=== PATIENT | male | born 1950 | race Caucasian/White ===

== ENCOUNTER → 2023-03-11 | Outpatient (CLI) | payer MEDICARE, OTHER, SELFPAY ==
--- NOTE | 2023-03-11 10:17 | RAD_ITS ---
INDICATION: CHRONIC HIP PAIN EXAMINATION/TECHNIQUE: X-RAY - XR Hip Unilateral with Pelvis when performed; 2-3 Views: AP view pelvis with AP and lateral views right hip COMPARISON: No relevant prior comparison study available FINDINGS: PELVIC BONES: No displaced fracture or suspicious osseous lesion demonstrated. Note that overlapping bowel shadows may however obscure fine detail. Sacroiliac joints are unremarkable. No widening of the pubic symphysis. Degenerative changes along imaged spine. HIPS: Severe bilateral hip degenerative joint space narrowing with [id number] articulation, subchondral eburnation and marginal osteophytosis. There is mild flattening of articular surfaces bilateral femoral heads. SOFT TISSUES: No soft tissue swelling or gas. 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 Electronically Signed: Oscar Reed MD at 0:21 EDT ,
--- NOTE | 2023-03-11 10:17 | RAD_ITS ---
INDICATION: PAIN IN BOTH KNEES EXAMINATION/TECHNIQUE: X-RAY - RIGHT XR Knee 1 or 2 Views 2 VIEWS COMPARISON: No relevant prior comparison study available FINDINGS: SOFT TISSUES: No soft tissue swelling or gas. No radiopaque foreign body. BONES/JOINTS: No acute fracture or subluxation.. Normal alignment. Preservation of the joint space.. No sclerotic or destructive changes observed. RAD/Knee 1 or 2 Views IMPRESSION: Unremarkable examination. Electronically Signed: Deepak Clayton MD at 11:27 EDT ,
--- NOTE | 2023-03-11 10:24 | RAD_ITS ---
INDICATION: PAIN EXAMINATION/TECHNIQUE: X-RAY - LEFT XR Knee 1 or 2 Views 2 VIEWS COMPARISON: No relevant prior comparison study available FINDINGS: SOFT TISSUES: No soft tissue swelling or gas. No radiopaque foreign body. BONES/JOINTS: No acute fracture or subluxation.. Mild chondrocalcinosis of the lateral joint compartment. Preservation of the joint space.. No sclerotic or destructive changes observed. RAD/Knee 1 or 2 Views IMPRESSION: Mild chondrocalcinosis of the lateral joint compartment. Electronically Signed: Deepak Clayton MD at 11:28 EDT ,
== END | disposition home or self-care (01) ==
PROVIDERS: PCP Family Medicine; Referring Provider Family Medicine; Visit Provider Family Medicine
DX: M25.551 Pain in right hip (principal)
CPT/HCPCS: 73502; 73560

== ENCOUNTER → 2023-06-06 | Outpatient (CLI) | payer MEDICARE, OTHER, SELFPAY ==
--- NOTE | 2023-06-06 09:20 | EKG12_ITS ---
Test Reason : PRE OP Blood Pressure : / mmHG Vent. Rate : 058 BPM Atrial Rate : 058 BPM P-R Int : 200 ms QRS Dur : 084 ms QT Int : 404 ms P-R-T Axes : 026 -14 004 degrees QTc Int : 396 ms Sinus bradycardia Inferior infarct , age undetermined Abnormal ECG Confirmed by DALLAS BENTLEY, MARITO ([id number]), editor & co founder JOHN MCMILLAN ([id number]) on 06/06/2023 2:33:10 PM Referred By: Drew Hernandez Confirmed By:MARITO HAYNES MD
--- NOTE | 2023-06-06 09:35 | RAD_ITS ---
STUDY: X-RAY CHEST REASON FOR EXAM: Male, 72 years old. PRE OP TECHNIQUE: PA and lateral views of the chest. COMPARISON: None. FINDINGS: The lungs are clear and expanded. There is no demonstrated pleural abnormality. Normal size heart. Normal mediastinum and [place]. Normal visualized pulmonary arteries. Normal visualized aortic arch and descending thoracic aorta. Normal visualized thoracic spine. Normal visualized ribs, clavicles, and shoulders. There is no demonstrated abnormality of the visualized soft tissue structures of the upper abdomen. RAD/Chest PA and Lateral IMPRESSION: Normal x-ray examination of the chest. Electronically Signed: Sd Trinidad MD at 22:20 [facility] ,
[2023-06-06 10:26] LABS: Absolute Lymphocyte Count 2.08 X10^3/uL (0.83-4.51); Absolute Neutrophil Count 8.3 X10^3/uL (2.0-7.7); Basophil# 0.06 X10^3/uL; Basophil% 0.5 % (0-1); Eosinophil# 0.13 X10^3/uL; Eosinophils% 1.1 % (0-5); Hematocrit 47.4 % (40-54); Hemoglobin 15.1 g/dL (13.0-16.5); Lymphocyte # 2.08 X10^3/ul (0.83-4.51); Lymphocyte % 18.3 % (19-41); Mean Corp Hgb Conc 31.9 g/dL (32-36); Mean Corpuscular Hgb 29.6 pg (27.0-32.0); Mean Corpuscular Volume 92.9 fL (80-94); Mean Platelet Vol. 9.3 fl (6.2-12.0); Monocyte# 0.68 X10^3/uL; NRBC Flagged by Analyzer 0 % (0-5); Neutrophil # 8.32 X10^3/uL (2.7-7.7); Neutrophil % 73.5 % (47-70); Platelet Count 289 K/mm3 (150-450); RBC Distribution Width CV 12.8 % (11.6-14.6); RBC Distribution Width SD 43.8 fl (35.1-43.9); White Blood Count 11.3 K/mm3 (4.4-11.0)
[2023-06-06 10:57] LABS: Anion Gap 3 (5-15); BUN 11 mg/dL (7-18); BUN/Creat Ratio 14.5 RATIO (10-20); Calcium,Total 8.8 mg/dL (8.5-10.1); Chloride 108 mmol/L (98-107); Creatinine, Serum 0.76 mg/dL (0.70-1.30); EST Glomerular Filtration Rate 107 mL/min (>60); Est Glom Filt Rate - Afr Amer 130 mL/min (>60); Glucose 95 mg/dL (74-106); Sodium Level 140 mmol/L (136-145)
== END | disposition home or self-care (01) ==
LOC: PSN 09:19
PROVIDERS: PCP Physician Assistant; Referring Provider Orthopaedic Surgery; Visit Provider Orthopaedic Surgery
DX: Z01.818 Encounter for other preprocedural examination (principal); M16.11 Unilateral primary osteoarthritis, right hip
CPT/HCPCS: 36415; 71046; 80048; 85025; 93005

== ENCOUNTER → 2023-07-01 | Outpatient (CLI) | payer MEDICARE, OTHER, SELFPAY ==
--- NOTE | 2023-07-01 | HIP_PTH ---
PATHOLOGY RESULTS PATIENT: SUKHDEV HERNANDEZ LOC: [facility] U#:[id number] AGE/SX: 72/M ROOM: RE07/01/[address]: Dr. Drew Hernandez MD : 1950 BED: DIS: 07/01/2023 SPEC #: [id number] RECD: 07/04/23 07:35 STATUS: JEFRY JULIA #: [id number] GEOVANNA: 07/01/23 00:[address]: Drew Hernandez DEPT: SURGICAL PATHOLOGY RECD BY: Jimena Zaldivar ENTERED: 07/04/23 07:35 SP TYPE: TOTAL HIP OTHR DR: MAY Tissues: Hip, NOS Procedures: Decalcification bone/plaque Surgery Specimen Level IV HEADER OPERATION: Right total hip replacement PRE-OP DIAGNOSIS: Grade 4 primary osteoarthritis right hip TISSUE SUBMITTED: Right hip MICROSCOPIC DIAGNOSIS Bone and tissue of right hip, total hip resection: Severe degenerative joint disease. Mild synovial hyperplasia. AM:yanique 07/08/2023 MICROSCOPIC DESCRIPTION Slides are reviewed. GROSS DESCRIPTION Received is one container labeled with the patient's name and designated bone and soft tissue right hip. The specimen consists of a aguilera femoral head with portion of femoral neck. The femoral head measures 5.5 x 6.0 x 4.5 cm and the femoral neck measures 1.0 cm in length. The articular surface displays prominent osteophyte formation, eburnation and bone erosion. Also present in the specimen container are multiple irregular fragments of bone reamings and pink-yellow soft tissue measuring in aggregate 9.0 x 9.0 x 2.5 cm. Finishing Trimmer sections are submitted in two cassettes as follows: 1 - soft tissue, 2??bone after decalcification. / SJ:yanique 07/04/2023 TC:5 [facility]: [id number], [id number]
--- OUTSIDE RECORDS SUMMARY | 2023-07-01 15:39 | XMS RPT_ITS | CCD ---
Author Name Unknown Address [address] [facility] [address] [place] [id number] Organization [facility] Care Team Providers [employer] Leader Name Role Phone Tim Hernandez Unavailable Sukhdev Ramos Unavailable Tim Rasheed Unavailable Sukhdev Ramos Unavailable Jared Parker, Dr. Sukhdev Terrazas Attending Inessa Parker, Dr. Sukhdev Terrazas Primary Care UnavailSukhdev Aguilar MD Primary Care Provider BORA RAMOS Attending Unavailable SUKHDEV PARKER Primary Care Unavailable SUKHDEV PARKER Primary Care Unavailable PASTORA SEQUEIRA Primary Care Unavailable PASTORA SEQUEIRA Consulting Unavailable ROCIO BENTLEY~[id number], ROCIO [place] Admitting Unavailable ROCIO BENTLEY~[id number], ROCIO [place] Attending Unavailable PASTORA SEQUEIRA Consulting Unavailable CORNELIUS GARZA APRN Consulting Unavailable CORNELIUS GARZA APRN Consulting Unavailable Allergies Allergy Classification Reported Allergen(s) Allergy Type Date of Onset Reaction(s) Facility (1 source) penicillin; Translations: [penicillin] [facility] Penicillins Drug allergy (disorder) [facility] Repository Medications Current Medications Medication Drug Class(es) Dates Sig (Normalized) Sig (Original) atorvastatin 10 mg oral tablet (1 source) HMG-CoA Reductase Inhibitor take 1 tablet by mouth once daily atorvastatin (Lipitor) 10 mg tablet Take 1 tablet (10 mg) by mouth once daily. 0 Active Problems Active Problems Problem Classification Problem Date Documented Da te Episodic/Chronic Disorders of lipid metabolism (5 sources) Dyslipidemia; Translations: [Hyperlipidemia, unspecified] Onset: 05-24-2023 05-24-2023 Chronic Other nervous system disorders (4 sources) Other chronic pain; Translations: [Other chronic pain] Onset: 05-24-2023 Chronic Other non-traumatic joint disorders (1 source) Hip pain; Translations: [Pain in right hip] 05-24-2023 Episodic Other non-traumatic joint disorders (5 sources) Pain in right hip; Translations: [Pain in right hip] Onset: 05-24-2023 Episodic Other non-traumatic joint disorders (5 sources) Pain in left hip; Translations: [Pain in left hip] Onset: 05-24-2023 Episodic Other screening for suspected conditions (not mental disorders or infectious disease) (5 sources) Patient encounter status; Translations: [Encounter for screening for malignant neoplasm of prostate] Onset: 05-24-2023 05-24-2023 Episodic Residual codes; unclassified (3 sources) Obstructive sleep apnea (adult) (pediatric); Translations: [OBSTRUCTIVE SLEEP APNEA] Onset: 06-02-2023 Chronic Residual codes; unclassified (3 sources) Localized edema; Translations: [Localized edema] Onset: 07-14-2022 Episodic Past or Other Problems Problem Classification Problem Date Documented Da te Episodic/Chronic Unclassified (1 source) Onset: 05-24-2023 05-24-2023 Results Test Name Value Interpretation Reference Range Facil ity Vital Signs Date Time Vital Sign Value Performing Clinician Facility 05-24-2023 13:44-0500 Body height 175.3 cm Bora Newbill PA-C Work Phone: [facility] 05-24-2023 13:44-0500 Body mass index (BMI) [Ratio] 29.74 kg/m2 Bora Newbill PA-C Work Phone: [facility] 05-24-2023 13:44-0500 Body temperature 97.81 [degF] Bora Newbill PA-C Work Phone: [facility] 05-24-2023 13:44-0500 Body weight 91.35 kg Bora Newbill PA-C Work Phone: [facility] 05-24-2023 13:44-0500 Diastolic blood pressure 53 mm[Hg] Bora Newbill PA-C Work Phone: [facility] 05-24-2023 13:44-0500 Heart rate 87 /min Bora Ramos PA-C Work Phone: [facility] 05-24-2023 13:44-0500 SaO2% (BldA) [Mass fraction] 95 % Bora ALEXANDER-C Work Phone: [facility] 05-24-2023 13:44-0500 Systolic blood pressure 122 mm[Hg] Bora ALEXANDER-Sidney Work Phone: [facility] Encounters Encounter Date Encounter Type Care Provider Facility Start: 06-02-2023 ambulatory PASTORA SEQUEIRA Faci lity:[facility] Start: 05-27-2023 End: 05-28-2023 ambulatory SUKHDEV PARKER [facility] Start: 05-24-2023 End: 05-24-2023 [facility] Start: 05-24-2023 End: 05-24-2023 Office outpatient new 30 minutes Bora Ramos PA-C Work Phone: [facility] Procedures Date Procedure Procedure Detail Performing Clinician Start: 05-27-2023 CBC panel - Blood by Automated count SUKHDEV PARKER Start: 05-27-2023 Comprehensive metabo lic 2000 panel - Serum or Plasma SUKHDEV PARKER Start: 05-27-2023 Lipid panel SUKHDEV CLIFFORD Start: 05-27-2023 PROSTATE SPECIFIC AN TIGEN, SCREEN SUKHDEV PARKER Start: 05-27-2023 TSH WITH REFLEX TO F REE T4 IF ABNORMAL SUKHDEV PARKER Plan of Treatment Date Care Activity Detail Author Start: 05-24-2024 End: 05-24-2024 Patient encounter procedure 05/24/2024 1:30 PM EST Office Visit [facility] [address] [place] [id number] Bora Ramos PA-C [address] [facility] [place] [address] [facility] Start: 05-27-2023 COVID-19 Vaccine (5 - Moderna series) COVID-19 Vaccine (5 - Moderna series) [facility] Start: 05-24-2023 End: 05-24-2024 CBC panel - Blood by Automated count CBC Lab Routine Dyslipidemia Chronic pain of both hips Expected: 05/24/2023 (Approximate), Expires: 05/24/2024 [facility] Service Area Work Phone: Payers Date Payer Category Payer [employer] [id number] 2022 [employer] LIFE [id number] 2022-Present [address] [place] [address] [id number] 2017 Unknown 2015 Medicare MEDICARE MEDICAR E PART A AND B [id number] 2015-Present [address] [place] [address] [id number] 1959 [employer] others) [id number] 1959 Medicare [id number] 1950 Unknown [id number] 1950 Unknown [id number] 1950 Unknown [id number] 1950 Unknown [id number] Social History Date Type Detail Facility Start: 05-24-2023 Tobacco smoking stat us WYIS Ex-smoker [facility] Work Phone: History of tobacco use Current smoker [facility] Work Phone: History of tobacco use Cigarette Smoker [facility] Work Phone: Start: 05-24-2023 Tobacco use and exposure Smokeless tobacco non-user [facility] Work Phone: Start: 05-24-2023 Alcohol intake Ex-drinker (finding) [facility] Work Phone: Start: 05-24-2023 History of Social function [facility] Work Phone: Start: 05-24-2023 Tobacco use panel [facility] Work Phone: Start: 05-24-2023 Alcohol Comment former drinker [facility] Work Phone: Start: 1950 Sex Assigned At Not on file [facility] Work Phone: Start: 05-14-2023 End: 05-24-2023 Exposure to SARS-CoV-2 (event) Not sure [facility] History of Present illness Narrative 05-24-2023 Bora Ramos PA-C - 05/24/2023 1:30 PM EST Note Date & Type Note Facility 05-24-2023 History of Present illness Narrative Subjective Patient ID: Sukhdev Alexandre is a 72 y.o. male who presents for [facility] (Patient transferring from Dr. Parker and offers no complaints. Mentions is scheduled for right hip replacement on 07-05-2023 in [place]./Colonoscopy done [address] Oliva, prostate and PSY done 05/2022.). HPI Patient presents to [facility]. Patient has medical history of dyslipidemia and takes atorvastatin for this. Patient also has a history of chronic hip pain and arthritis and is scheduled to have right total hip in early June. Patient has already been cleared for surgery. Shortly thereafter, the patient will have the left done as well. Patient is having this done at [place] [facility]. Patient has no acute complaints Review of Systems Constitutional: See HPI Eye: No recent visual problem. Respiratory: No shortness of breath, No cough. Cardiovascular: No chest pain. Gastrointestinal: No abdominal pain, No nausea, No vomiting. Genitourinary: No dysuria, No hematuria. Musculoskeletal: No decreased range of motion. Integumentary: No rash. Neurologic: Alert and oriented X4, No numbness, No tingling. All other systems are negative Objective BP 122/53 Pulse 87 Temp 36.6 C (97.8 F) (Temporal) Ht 1.753 m (5' 9 ) Wt 91.4 kg (201 lb 6.4 oz) SpO2 95% BMI 29.74 kg/m Physical Exam General: Alert and oriented, No acute distress. Eye: Pupils are equal, round and reactive to light, Extraocular movements are intact, Normal conjunctiva. HENT: Normocephalic, Normal hearing, Oral mucosa is moist, No pharyngeal erythema, No sinus tenderness. Neck: Supple, Non-tender, No lymphadenopathy. Respiratory: Lungs are clear to auscultation, Respirations are non-labored, Breath sounds are equal Cardiovascular: Normal rate, Regular rhythm. Gastrointestinal: Non-distended. Musculoskeletal: Normal range of motion, Normal strength, No tenderness, No swelling, No deformity, Normal gait. Integumentary: Warm, Dry, Intact, No pallor, No rash. Neurologic: Alert, Oriented, Normal sensory, Normal motor function, No focal deficits, Cranial Nerves II-XII are grossly intact Psychiatric: Cooperative, Appropriate mood & affect. Assessment/Plan Dyslipidemia/Healthcare maintenance: Screening screening labs ordered. Continue atorvastatin at current dose. Further recommendations pending results. Chronic hip pain: Continue with orthopedics as scheduled. Follow-up in 1 year or as needed unless labs dictate otherwise. Problem List Items Addressed This Visit None Visit Diagnoses Dyslipidemia - Primary Relevant Orders CBC Comprehensive Metabolic Panel Lipid Panel TSH with reflex to Free T4 if abnormal Chronic pain of both hips Relevant Orders CBC Comprehensive Metabolic Panel Lipid Panel TSH with reflex to Free T4 if abnormal Encounter for screening for malignant neoplasm of prostate Relevant Orders Prostate Specific Antigen, Screen Final diagnoses: [E78.5] Dyslipidemia [M25.551, M25.552, G89.29] Chronic pain of both hips [Z12.5] Encounter for screening for malignant neoplasm of prostate documented in this encounter [facility] Work Phone: Evaluation note Note Date & Type Note Facility documented in this encounter [facility] Work Phone: Reason for referral (narrative) Consultation (Routine) - Authorized Note Date & Type Note Facility Referral ID Status Reason Start Date Expiration Date V isits Requested Visits Authorized [id number] Authorized 05/24/2023 05/23/2024 1 1 [facility] Work Phone: Summary Purpose Family History No Family History Records FoundNo Family History Records FoundNo Family History Records FoundNo Family History Records FoundNo Family History Records Found Advance Directives No Advanced Directives Records FoundNo Advanced Directives Records FoundNo Advanced Directives Records FoundNo Advanced Directives Records FoundNo Advanced Directives Records Found Additional Source Comments (unrecognized sect ion and content) No Status Records FoundNo Status Records FoundNo Status Records FoundNo Status Records FoundNo Status Records Found INFORMATION SOURCE (unrecogn ized section and content) DATE CREATED AUTHOR AUTHOR'S ORGANIZ ATION 07/20/2022 [facility] DATE CREATED AUTHOR AUTHOR'S ORGANIZ ATION 05/27/2023 [facility] DATE CREATED AUTHOR AUTHOR'S ORGANIZ ATION 06/02/2023 [facility] DATE CREATED AUTHOR AUTHOR'S ORGANIZ ATION 06/04/2023 [facility] Reason for Visit (unrecogniz ed section and content) Care Teams (unrecognized sec tion and content) FOR RECORDS PERTAINING TO PATIENTS WHO ARE OR HAVE BEEN ENROLLED IN A CHEMICAL DEPENDENCY/SUBSTANCEABUSE PROGRAM, SOME INFORMATION MAY BE OMITTED. This clinical summary was aggregated from multiple sources. Caution should be exercised in using it in the provision of clinical care. This summary normalizes information from multiple sources, and as a consequence, information in this document may materially change the coding, format and clinical context of patient data. In addition, data may be omitted in some cases. CLINICAL DECISIONS SHOULD BE BASED ON THE PRIMARY CLINICAL RECORDS. [facility]. provides no warranty or guarantee of the accuracy or completeness of information in this document.
== END | disposition home or self-care (01) ==
LOC: LABSPEC 15:13
PROVIDERS: PCP Physician Assistant; Referring Provider Orthopaedic Surgery; Visit Provider Orthopaedic Surgery
DX: M16.11 Unilateral primary osteoarthritis, right hip (principal)
CPT/HCPCS: 88305; 88311

== ENCOUNTER → 2023-07-12 | Outpatient (CLI) | payer MEDICARE, OTHER, SELFPAY ==
--- NOTE | 2023-07-12 12:52 | VDLE_ITS ---
Reason For Study: RLE Pain RIGHT LEFT GSV is normal. CFV is compressible, spontaneous, phasic, CFV is compressible, spontaneous, phasic, competent, and demonstrates normal competent and demonstrates normal augmentation. augmentation. FV is compressible, spontaneous, phasic, competent and demonstrates normal augmentation. POP V is compressible, spontaneous, phasic, competent and demonstrates normal augmentation. T/P Trunk is compressible. PTV is compressible. RT PerV is compressible. Procedure This is a venous duplex using B-mode, color flow and spectral Doppler. Exam performed in department. The exam was diagnostic. A preliminary report was called and/or faxed to Godwin Menendez. VL/Venous Duplex US, Unilateral Interpretation Summary Deep veins of the right lower extremity are patent and compressible segmentally . There is no evidence of right lower extremity deep vein thrombosis. The right great sapheno us vein appears patent and compressible segmentally. Ordering Physician: Lynn Menendez Referring Physician: Lynn Menendez Performed By: Shan Jasmine RVT
== END | disposition home or self-care (01) ==
LOC: CVS 12:51
PROVIDERS: PCP Physician Assistant; Referring Provider Physician Assistant; Visit Provider Physician Assistant
DX: M79.661 Pain in right lower leg (principal); R21 Rash and other nonspecific skin eruption
CPT/HCPCS: 93971

== ENCOUNTER → 2023-08-24 | Outpatient (CLI) | payer MEDICARE, OTHER, SELFPAY ==
--- OUTSIDE RECORDS SUMMARY | 2023-08-24 09:07 | XMS RPT_ITS | CCD ---
Author Name Unknown Address [address] [place] [address] Organization [facility] Care Team Providers Care Data Processing Consultant Name Role Phone Tim Hernandez Unavailable Unavailable Sukhdev Blanton Unavailable Unavailable Tim Hernandez Unavailable Unavailable Sukhdev Blanton Unavailable Unavailable Elena, Dr. Sukhdev Terrazas Attending Unavailsteve Blanton, Dr. Sukhdev Terrazas Primary Care UnavailSukhdev Aguilar MD Primary Care Provider SUKHDEV BLANTON Primary Care Unavailable PASTORA SEQUEIRA Primary Care Unavailable PASTORA SEQUEIRA Consulting Unavailable ROCIO BENTLEY~[id number], ROCIO [place] Admitting Unavailable ROCIO BENTLEY~[id number], ROCIO [place] Attending Unavailable PASTORA SEQUEIRA Consulting Unavailable CORNELIUS GARZA APRN Consulting Unavailable CORNELIUS GARZA APRN Consulting Unavailable Bora Ramos PA-C Primary Care Provider BORA RAMOS Attending Unavailable SUKHDEV BLANTON Primary Care Unavailable BORA RAMOS Attending Unavailable BORA RAMOS Primary Care Unavailable Allergies Allergy Classification Reported Allergen(s) Allergy Type Date of Onset Reaction(s) Facility (1 source) penicillin; Translations: [penicillin[facility] Penicillins Drug allergy (disorder) [facility] Repository Medications Current Medications Medication Drug Class(es) Dates Sig (Normalized) Sig (Original) atorvastatin 10 mg oral tablet (3 sources) HMG-CoA Reductase Inhibitor Start: 07-18-2023 End: 07-18-2023 take 1 tablet by mouth once daily atorvastatin (Lipitor) 10 mg tablet Indications: Dyslipidemia Take 1 tablet (10 mg) by mouth once daily. 90 tablet 3 07/18/2023 Active Problems Active Problems Problem Classification Problem Date Documented Da te Episodic/Chronic Disorders of lipid metabolism (6 sources) Dyslipidemia; Translations: [Hyperlipidemia, unspecified] Onset: 05-24-2023 05-24-2023 Chronic E Codes: Adverse effects of medical drugs (3 sources) Adverse reaction to drug; Translations: [Adverse effect of unspecified drugs, medicaments and biological substances, initial encounter] Onset: 07-18-2023 07-18-2023 Episodic Other nervous system disorders (4 sources) Other [...] Problem Date Documented Da te Episodic/Chronic Unclassified (2 sources) Onset: 05-24-2023 Resolved: 07-18-2023 05-24-2023 Results Test Name Value Interpretation Reference Range Facil ity Vital Signs Date Time Vital Sign Value Performing Clinician Facility 07-18-2023 16:21-0500 Body height 175.3 cm Bora IGAWorksliseth [employer] Work Phone: [facility] 07-18-2023 16:21-0500 Body mass index (BMI) [Ratio] 30.82 kg/m2 Bora Kaazing Work Phone: [facility] 07-18-2023 16:21-0500 Body temperature 98.6 [degF] Bora Newbill PA-C Work Phone: [facility] 07-18-2023 16:21-0500 Body weight 94.67 kg Bora Newbill PA-C Work Phone: [facility] 07-18-2023 16:21-0500 Diastolic blood pressure 62 mm[Hg] Bora Newbill PA-C Work Phone: [facility] 07-18-2023 16:21-0500 Heart rate 59 /min Bora Newbill PA-C Work Phone: [facility] 07-18-2023 16:21-0500 Systolic blood pressure 141 mm[Hg] Bora Newbill PA-C Work Phone: [facility] 05-24-2023 13:44-0500 Body height 175.3 cm Bora Newbill PA-C Work Phone: [phone] [place] [address] 05-24-2023 13:44-0500 Body mass index (BMI) [Ratio] 29.74 kg/m2 Bora Newbill PA-C Work Phone: [phone] [address] 05-24-2023 13:44-0500 Body temperature 97.81 [degF] Bora Newbill PA-C Work Phone: [facility] 05-24-2023 13:44-0500 Body weight 91.35 kg Bora Newbill PA-C Work Phone: [facility] 05-24-2023 13:44-0500 Diastolic blood pressure 53 mm[Hg] Bora Newbill PA-C Work Phone: [phone] [place] [address] 05-24-2023 13:44-0500 Heart rate 87 /min Bora Newbill PA-C Work Phone: [phone] [place] [address] 05-24-2023 13:44-0500 SaO2% (BldA) [Mass fraction] 95 % Bora Ramos PA-C Work Phone: [facility] 05-24-2023 13:44-0500 Systolic blood pressure 122 mm[Hg] Bora Ramos PA-C Work Phone: [facility] Encounters Encounter Date Encounter Type Care Provider Facility Start: 07-18-2023 End: 07-18-2023 ambulatory BORA Caputo [facility] Start: 07-18-2023 End: 07-18-2023 Office outpatient visit 25 minutes Bora Ramos PA-C Work Phone: [facility] Procedures Date Procedure Procedure Detail Performing Clinician Start: 05-27-2023 CBC panel - Blood by Automated count SUKHDEV BLANTON Start: 05-27-2023 Comprehensive metabo lic 2000 panel - Serum or Plasma SUKHDEV BLANTON Start: 05-27-2023 Lipid panel SUKHDEV CLIFFORD Start: 05-27-2023 PROSTATE SPECIFIC AN TIGEN, SCREEN SUKHDEV BLANTON Start: 05-27-2023 TSH WITH REFLEX TO F REE T4 IF ABNORMAL SUKHDEV BLANTON Start: 05-27-2023 Lipid 1996 panel - S janak or Plasma Bora Ramos PA-C Work Phone: Plan of Treatment Date Care Activity Detail Author Start: 05-27-2028 Lipid panel Lipid Panel [facility] Start: 05-24-2024 End: 05-24-2024 Patient encounter procedure [facility] Start: 05-27-2023 COVID-19 Vaccine (5 - Moderna series) COVID-19 Vaccine (5 - Moderna series) [facility] Start: 05-24-2023 End: 05-24-2024 CBC panel - Blood by Automated count CBC Lab Routine Dyslipidemia Chronic pain of both hips Expected: 05/24/2023 (Approximate), Expires: 05/24/2024 [facility] Service Area Work Phone: Payers Date Payer Category Payer [employer] [id number] 2022 [employer] LIFE [id number] 2022-Present [address] [place] [address] [id number] 2017 Unknown 2015 Medicare MEDICARE MEDICAR E PART A AND B [id number] 2015-Present [address] [place] [address] [id number] 1959 [employer] others) [id number] 1959 Medicare [id number] 1950 Unknown [id number] 1950 Unknown [id number] 1950 Unknown [id number] 1950 Unknown [id number] 1950 Unknown [id number] Social History Date Type Detail Facility Start: 05-24-2023 [facility] Work Phone: History of tobacco use Current smoker [facility] Work Phone: History of tobacco use Cigarette Smoker [facility] Work Phone: Start: 05-24-2023 Tobacco use and exposure Smokeless tobacco non-user [facility] Work Phone: Start: 05-24-2023 End: 07-18-2023 Alcohol intake Ex-drinker (finding) [facility] Work Phone: Start: 05-24-2023 History of Social function [facility] Work Phone: Start: 05-24-2023 Tobacco use panel [facility] Work Phone: Start: 05-24-2023 Alcohol Comment former drinker [facility] Work Phone: Start: 1950 Sex Assigned At Not on file [facility] Work Phone: Start: 05-14-2023 End: 07-18-2023 Exposure to SARS-CoV-2 (event) Not sure [facility] History of Present illness Narrative 07-18-2023 Bora Ramos PA-C - 07/18/2023 4:30 PM EST Note Date & Type Note Facility 07-18-2023 History of Present illness Narrative Subjective Patient ID: Sukhdev Hernandez is a 72 y.o. male who presents for Medication Reaction (Patient states had hives all over body x last week and cleared up 2 days ago./Patient feels he had a reaction to the Celebrex, and discontinued med 3 days ago./Patient had right hip replacement on 07-01-23 and due for left hip replacement./). HPI Patient presents for possible drug reaction. Patient underwent total right hip 01 July 2023. Postoperatively, the patient was prescribed several medications including Celebrex. Started the medications and broke out in what sounds like a maculopapular rash initiating on the trunk. Patient stopped the oxycodone and symptoms persisted. Patient stopped the Celebrex and symptoms resolved. No subsequent similar issues. Patient's surgeon is requesting referral to an retail event coordinator to confirm Celebrex allergy. Patient is tentatively scheduled to have the left hip done in the near future. Review of Systems Constitutional: See HPI Integumentary: See HPI Neurologic: Alert and oriented X4, No numbness, No tingling. All other systems are negative Objective BP 141/62 Pulse 59 Temp 37 C (98.6 F) (Temporal) Ht 1.753 m (5' 9 ) Wt 94.7 kg (208 lb 11.2 oz) BMI 30.82 kg/m Physical Exam General: Alert and oriented, No acute distress. Eye: Pupils are equal, round and reactive to light, Normal conjunctiva. HENT: Normocephalic, Neck: Supple Respiratory: Respirations are non-labored Musculoskeletal: Normal ROM and strength Integumentary: Warm, Dry, Intact, No pallor, No rash. Neurologic: Alert, Oriented, Normal sensory, Cranial Nerves II-XII are grossly intact Psychiatric: Cooperative, Appropriate mood & affect. 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 Dyslipidemia: Lipitor refilled Follow-up as scheduled or as needed. Problem List Items Addressed This Visit None Visit Diagnoses Dyslipidemia - Primary Relevant Medications atorvastatin (Lipitor) 10 mg tablet Adverse effect of drug, initial encounter Relevant Orders Referral to ENT Final diagnoses: [E78.5] Dyslipidemia [T50.905A] Adverse effect of drug, initial encounter documented in this encounter [facility] Work Phone: History of Present illness Narrative 05-24-2023 Bora Ramos PA-C - 05/24/2023 1:30 PM EST Note Date & Type Note Facility 05-24-2023 History of Present illness Narrative Subjective Patient ID: Sukhdev Hernandez is a 72 y.o. male who presents for [facility] (Patient transferring from Dr. Blanton and offers no complaints. Mentions is scheduled for right hip replacement on 07-05-2023 in [place]./Colonoscopy done [address] Oliva, prostate and PSY done 05/2022.). HPI Patient presents to [facility]. Patient has medical history of dyslipidemia and takes atorvastatin for this. Patient also has a history of chronic hip pain and arthritis and is scheduled to have right total hip in early June. Patient has already been cleared for surgery. Shortly thereafter, the patient will have the left done as well. Patient is having this done at [facility]. Patient has no acute complaints Review [...] neoplasm of prostate documented in this encounter [facility] Work Phone: Evaluation note Note Date & Type Note Facility documented in this encounter [facility] Work Phone: Evaluation note Note Date & Type Note Facility documented in this encounter [facility] Work Phone: Reason for referral (narrative) Consultation (Routine) - Authorized Note Date & Type Note Facility Referral ID Status Reason Start Date Expiration Date V isits Requested Visits Authorized [id number] Authorized 05/24/2023 05/23/2024 1 1 [facility] Work Phone: Reason for referral (narrative) Consultation (Routine) - Authorized Note Date & Type Note Facility Referral ID Status Reason Start Date Expiration Date Visits Requested Visits Authorized [id number] Authorized Specialty Services Required 07/18/2023 07/17/2024 1 1 [facility] Work Phone: Summary Purpose Family History No [...] DATE CREATED AUTHOR AUTHOR'S ORGANIZ ATION 07/20/[address] [facility] DATE CREATED AUTHOR AUTHOR'S ORGANIZ ATION 06/02/2023 [facility] DATE CREATED AUTHOR AUTHOR'S ORGANIZ ATION 06/04/2023 [facility] DATE CREATED AUTHOR AUTHOR'S ORGANIZ ATION 07/21/2023 [facility] Reason for Visit (unrecogniz ed section and content) Reason Comments Medication Reaction Patient states had h hermila all over body x last week and cleared up 2 days ago.Patient feels he had a reaction to the Celebrex, and discontinued med 3 days ago.Patient had right hip replacement on 07-01-23 and due for left hip replacement. Care Teams (unrecognized sec tion and content) Data Processing Consultant Relationship Specialty Start Date End Date Bora Ramos PA-C [address] [facility] [place] [address] PCP - General Internal Medicine 07/15/23 FOR RECORDS PERTAINING TO PATIENTS WHO ARE [...] BE BASED ON THE PRIMARY CLINICAL RECORDS. [employer] provides no warranty or guarantee of the accuracy or completeness of information in this document.
--- NOTE | 2023-08-24 09:26 | EKG12_ITS ---
Test Reason : PRE-OP Blood Pressure : / mmHG Vent. Rate : 046 BPM Atrial Rate : 046 BPM P-R Int : 214 ms QRS Dur : 090 ms QT Int : 440 ms P-R-T Axes : 031 -09 004 degrees QTc Int : 385 ms Sinus bradycardia with 1st degree A-V block Otherwise normal ECG Confirmed by Lebron Sommer ([id number]), online editor JOHN MCMILLAN ([id number]) on 08/24/2023 1:37:17 PM Referred By: Drew Hernandez Confirmed By:Lebron Sommer
[2023-08-24 09:34] LABS: Absolute Lymphocyte Count 2.31 X10^3/uL (0.83-4.51); Absolute Neutrophil Count 3.4 X10^3/uL (2.0-7.7); Basophil# 0.03 X10^3/uL; Basophil% 0.5 % (0-1); Eosinophil# 0.13 X10^3/uL; Hematocrit 45.6 % (40-54); Hemoglobin 14.5 g/dL (13.0-16.5); Lymphocyte # 2.31 X10^3/ul (0.83-4.51); Lymphocyte % 36.4 % (19-41); Mean Corp Hgb Conc 31.8 g/dL (32-36); Mean Corpuscular Hgb 28.9 pg (27.0-32.0); Mean Platelet Vol. 8.7 fl (6.2-12.0); Monocyte# 0.47 X10^3/uL; Monocyte% 7.4 % (0-10); NRBC Flagged by Analyzer 0 % (0-5); Neutrophil # 3.38 X10^3/uL (2.7-7.7); Neutrophil % 53.2 % (47-70); Platelet Count 261 K/mm3 (150-450); RBC Distribution Width CV 13.9 % (11.6-14.6); RBC Distribution Width SD 46.6 fl (35.1-43.9); Red Blood Count 5.01 M/mm3 (4.6-6.2); White Blood Count 6.4 K/mm3 (4.4-11.0)
[2023-08-24 10:09] LABS: Anion Gap 2 (5-15); BUN 10 mg/dL (7-18); Calcium,Total 9.3 mg/dL (8.5-10.1); Chloride 109 mmol/L (98-107); Creatinine, Serum 0.83 mg/dL (0.70-1.30); EST Glomerular Filtration Rate 96 mL/min (>60); Est Glom Filt Rate - Afr Amer 116 mL/min (>60); Glucose 90 mg/dL (74-106); Potassium 4.5 mmol/L (3.5-5.1); Sodium Level 141 mmol/L (136-145)
== END | disposition home or self-care (01) ==
LOC: PSN 08:45
PROVIDERS: PCP Internal Medicine; Referring Provider Orthopaedic Surgery; Visit Provider Orthopaedic Surgery
DX: Z01.818 Encounter for other preprocedural examination (principal); M16.12 Unilateral primary osteoarthritis, left hip
CPT/HCPCS: 36415; 80048; 85025; 93005

== ENCOUNTER → 2023-09-12 | Outpatient (CLI) | payer MEDICARE, OTHER, SELFPAY ==
--- NOTE | 2023-09-09 07:15 | HIP_PTH ---
PATIENT: SUKHDEV HERNANDEZ LOC: [facility] U#:[id number] AGE/SX: 72/M ROOM: RE09/12/[address]: Dr. Drwe Hernandez MD : 1950 BED: DIS: 09/12/2023 SPEC #: [id number] RECD: 09/13/23 08:50 STATUS: JEFRY REKasie #: [id number] GEOVANNA: 09/09/23 07:[address]: Drew Hernandez DEPT: SURGICAL PATHOLOGY RECD BY: Rossy Sales ENTERED: 09/13/23 08:50 SP TYPE: TOTAL HIP OTHR DR: Dr. Abigail Torres, [facility] Tissues: Hip, NOS Procedures: Decalcification bone/plaque Surgery Specimen Level IV HEADER OPERATION: Left total hip arthroplasty PRE-OP DIAGNOSIS: Left hip grade four primary osteoarthritis TISSUE SUBMITTED: Left hip MICROSCOPIC DIAGNOSIS Bone and tissue of left hip, total hip resection: Severe degenerative joint disease. AM: 09/16/23 MICROSCOPIC DESCRIPTION Slides are reviewed. GROSS DESCRIPTION Received is one container labeled with the patient's name and designated bone and soft tissue left hip. The specimen consists of a aguilera femoral head (with portion of femoral neck). The femoral head measures 5.5 x 5.5 x 5.0 cm (and the femoral neck measures 1.5 cm in length.) The articular surface displays prominent osteophyte formation, eburnation and bone erosion. Also present in the specimen container are multiple irregular fragments of bone reamings measuring in aggregate 7.0 x 8.0 x 3.0 cm. [employer] sections are submitted in two cassettes as follows: 1 - soft tissue, 2 - bone after decalcification.ALEJANDRA / 09/13/23 TC: 5 [facility]: [id number], [id number]
== END | disposition home or self-care (01) ==
LOC: LABSPEC 15:18
PROVIDERS: PCP Internal Medicine; Referring Provider Orthopaedic Surgery; Visit Provider Orthopaedic Surgery
DX: M16.12 Unilateral primary osteoarthritis, left hip (principal)
CPT/HCPCS: 88305; 88311

== ENCOUNTER → 2024-04-17 | Outpatient (CLI) | payer MEDICARE, OTHER, SELFPAY ==
--- NOTE | 2024-04-17 14:54 | CT_ITS ---
EXAM: CT HEAD WITHOUT AND WITH INTRAVENOUS CONTRAST CLINICAL INDICATION: Weight loss. Drooling. Left hand tremor. TECHNIQUE: Multiple axial images were obtained of the head without and with intravenous contrast. This CT exam was performed using one or more of the following dose reduction techniques: automated exposure control, adjustment of the mA and/or kV according to patient size, and/or use of iterative reconstruction technique. CONTRAST: IV 50mL Isovue-370 RADIATION DOSE: CTDIvol = 44.99 mGy, DLP = 1648.46 mGy-cm COMPARISON: No relevant prior studies available. FINDINGS: BRAIN AND EXTRA-AXIAL SPACES: Unremarkable. No intra- or extra-axial hemorrhage. No evidence of acute infarct. No intracranial mass or mass effect. There is preservation of the pedro/white matter interface. Posterior fossa structures are unremarkable. Ventricles are appropriate for age. No hydrocephalus. Basal cisterns are patent. Following IV contrast administration, there are no abnormally enhancing lesions intra-axially and extra-axially. BONES/JOINTS: Unremarkable. No discrete lytic or blastic abnormalities. SINUSES: Unremarkable as visualized. Clear. MASTOID AIR CELLS: Unremarkable. Clear. ORBITS: Visualized globes, extraocular muscles, optic nerves and retrobulbar fat appear unremarkable. CT/Brain/Head W/WO Contrast IMPRESSION: Negative head/brain CT without and with intravenous contrast. Electronically Signed: Henri Arenas MD at 13:35 EDT ,
[2024-04-17 15:28] LABS: CREATININE FINGERSTICK < 1.0 mg/dL (0.70-1.30); EGFR FINGERSTICK > 60.0000 mL/min (>60)
--- OUTSIDE RECORDS SUMMARY | 2024-04-17 19:42 | XMS RPT_ITS | CCD ---
Author Organization [facility] Care Team Providers Care Exhaust Equipment Operator Name Role Phone Tim Hernandez Unavailable Unavailable Sukhdev Parker Unavailable Unavailable Tim Hernandez Unavailable Unavailable Sukhdev Parker Unavailable Unavailable Elena, Dr. Sukhdev Terrazas Attending Unavailsteve Parker, Dr. Sukhdev Terrazas Primary Care UnavailSukhdev Aguilar MD Primary Care Provider Mary Ramos PA-C Primary Care Provider PASTORA SEQUEIRA Primary Care Unavailable PASTORA SEQUEIRA Consulting Unavailable ROCIO BENTLEY~[id number], ROCIO [place] Admitting Unavailable ROCIO BENTLEY~[id number], ROCIO [place] Attending Unavailable PASTORA SEQUEIRA Consulting Unavailable SPARR GRA[employer] APPLICATION DEVELOPERCORNELIUS Villafuerte Consulting Unavailable SPARR [employer] APPLICATION DEVELOPERCORNELIUS Villafuerte Consulting Unavailable Vincent GRAILS [employer]B APPLICATION DEVELOPER-ENTRY ANALYST, Sirisha B Primary Care Provider MARY RAMOS Attending Unavailable SUKHDEV PARKER Primary Care Unavailable MARY RAMOS Attending Unavailable MARY RAMOS Primary Care Unavailable VINCENT, SIRISHA B Attending Unavailable VINCENT, SIRISHA B Primary Care Unavailable VINCENT, SIRISHA B Attending Unavailable VINCENT, SIRISHA B Primary Care Unavailable Vincent ENTRY ANALYST, Sirisha B Primary Care Provider VINCENT, SIRISHA B Referring Unavailable VINCENT, SIRISHA B Primary Care Unavailable TIM HERNANDEZ Attending Unavailable TIM HERNANDEZ Referring Unavailable VINCENT, SIRISHA B Primary Care Unavailable VINCENT, SIRISHA B Referring Unavailable VINCENT, SIRISHA B Primary Care Unavailable VINCENT, SIRISHA B Referring Unavailable VINCENT, SIRISHA B Primary Care Unavailable VICKEY GUTIERREZ Attending Unavailable VICKEY GUTIERREZ Admitting Unavailable VINCENT, SIRISHA B Primary Care Unavailable VINCENT, SIRISHA B Primary Care Unavailable SUKHDEV PARKER Primary Care Unavailable Allergies Allergy Classification Reported Allergen(s) Allergy Type Date of Onset Reaction(s) Facility (1 source) penicillin; Translations: [penicillin] Drug Allergy [facility] Repository (5 sources) Penicillins; Translations: [PENICILLINS] Drug allergy (disorder) 4 [facility] Repository (8 sources) celecoxib; Translations: [CELECOXIB] Drug Allergy 4 Itching, Rash [facility] (4 sources) Penicillins Drug Allergy 4 Unknown, Hives [facility] Work Phone: Medications Current Medications Medication Drug Class(es) Dates Sig (Normalized) Sig (Original) atorvastatin 10 mg oral tablet (7 sources) HMG-CoA Reductase Inhibitor Start: 07-18-2023 End: 07-18-2023 take 1 tablet by mouth once daily atorvastatin (Lipitor) 10 mg tablet Indications: Dyslipidemia Take 1 tablet (10 mg) by mouth once daily. 90 tablet 3 07/18/2023 Active calcium chloride 0.0014 meq/ml / potassium chloride 0.004 meq/ml / sodium chloride 0.103 meq/ml / sodium lactate 0.028 meq/ml injectable solution (1 source) Start: 11-29-2023 take 20 mL intravenously every hour 20 mL/hr, intravenous, Continuous, Starting on Tue11/29/23 at 1200, Preprocedure multivitamin tablet (4 sources) take 1 tablet by mouth once daily multivitamin tablet Take 1 tablet by mouth once daily. Active zolpidem tartrate 5 mg oral tablet (2 sources) gamma-Aminobutyr ic Acid-ergic Agonist Start: 03-07-2024 zolpidem (Ambien) 5 mg tablet Take 1 tablet (5 mg) by mouth as needed at bedtime for sleep. 03/07/2024 Active Completed/Discontinued Medications Medication Drug Class(es) Dates Sig (Normalized) Sig (Original) Meperidine (1 source) Opioid Agonist Start: 11-29-2023 End: 11-29-2023 intravenous, As needed, Starting on Tue11/29/23 at 1206, Intraprocedure 2 ml midazolam 5 mg/ml injection (1 source) Benzodiazepine Start: 11-29-2023 End: 11-29-2023 intravenous, Administer over 5 Minutes, As needed, Starting on Tue11/29/23 at 1207, Intraprocedure Problems Active Problems Problem Classification Problem Date Documented Da te Episodic/Chronic Diseases of mouth; excluding dental (3 sources) Disturbances of salivary secretion; Translations: [Dribbling from mouth] Onset: 03-28-2024 Episodic Disorders of lipid metabolism (10 sources) Dyslipidemia; Translations: [Hyperlipidemia, unspecified] Onset: 05-24-2023 05-24-2023 Chronic Other diseases of kidney and ureters (4 sources) Disorder of kidney and ureter, unspecified; Translations: [Disorder of kidney and ureter, unspecified] Onset: 03-28-2024 Episodic Other diseases of kidney and ureters (1 source) Abnormal renal function; Translations: [Disorder of kidney and ureter, unspecified] 03-28-2024 Episodic Other nervous system disorders (4 sources) Other chronic pain; Translations: [Other chronic pain] Onset: 05-24-2023 Chronic Other nervous system disorders (2 sources) Tremor, unspecified; Translations: [Tremor, unspecified] Onset: 03-28-2024 Episodic Other nervous system disorders (1 source) Finding of hand region; Translations: [Tremor, unspecified] 03-28-2024 Episodic Other non-traumatic joint disorders (1 source) Hip pain; Translations: [Pain in right hip] 05-24-2023 Episodic Other nutritional; endocrine; and metabolic disorders (6 sources) Abnormal weight loss; Translations: [Abnormal weight loss] Onset: 03-28-2024 Episodic Other nutritional; endocrine; and metabolic disorders (2 sources) Weight loss; Translations: [Abnormal weight loss] 03-28-2024 Episodic Other screening for suspected conditions (not mental disorders or infectious disease) (20 sources) Patient encounter status; Translations: [Encounter for screening for malignant neoplasm of prostate] Onset: 05-24-2023 05-24-2023 Episodic Other skin disorders (4 sources) Corns and callosities; Translations: [Corns and callosities] Onset: 03-28-2024 Episodic Other skin disorders (2 sources) [place] - lesion ; Translations: [Corns and callosities] 03-28-2024 Episodic Residual codes; unclassified (3 sources) Obstructive sleep apnea (adult) (pediatric); Translations: [OBSTRUCTIVE SLEEP APNEA] Onset: 06-02-2023 Chronic Residual codes; unclassified (3 sources) Localized edema; Translations: [Localized edema] Onset: 07-14-2022 Episodic Past or Other Problems Problem Classification Problem Date Documented Da te Episodic/Chronic E Codes: Adverse effects of medical drugs (3 sources) Adverse reaction to drug; Translations: [Adverse effect of unspecified drugs, medicaments and biological substances, initial encounter] Onset: 07-18-2023 07-18-2023 Episodic Other non-traumatic joint disorders (5 sources) Pain in right hip; Translations: [PAIN IN RIGHT HIP] Onset: 05-24-2023 Episodic Other non-traumatic joint disorders (5 sources) Pain in left hip; Translations: [PAIN IN LEFT HIP] Onset: 05-24-2023 Episodic Unclassified (6 sources) Onset: 05-24-2023 Resolved: 11-29-2023 05-24-2023 Results Test Name Value Interpretation Reference Range Facil ity CBC W Auto Differential pane l (Bld)on 04-02-2024 Basophils (Bld) [#/Vol] 0.06 x10*3/uL Normal 0.00-0.10 [facility] Comment on above: Performed By: #### 5 7021-8 #### NIK CHAMPION ([id number]) [facility] ([facility]) [address] [place] [address] 94545 Basophils/100 WBC (Bld) 0.7 % Normal 0.0-2.0 [facility] Comment on above: Performed By: #### 5 7021-8 #### NIK CHAMPION ([id number]) [facility] ([facility]) [address] [place] [address] 21904 Eosinophils (Bld) [#/Vol] 0.31 x10*3/uL Normal 0.00-0.40 [facility] Comment on above: Performed By: #### 5 7021-8 #### NIK CHAMPION ([id number]) [facility] ([facility]) [address] [place] [address] 64818 Eosinophils/100 WBC (Bld) 3.6 % Normal 0.0-6.0 [facility] Comment on above: Performed By: #### 5 7021-8 #### NIK CHAMPION ([id number]) [facility] ([facility]) [address] [place] [address] 58634 Erythrocyte distribution width (RBC) [Ratio] 14.2 % Normal 11.5-14.5 [facility] Comment on above: Performed By: #### 5 7021-8 #### NIK CHAMPION ([id number]) [facility] ([facility]) [address] [place] [address] Hematocrit (Bld) [Volume fraction] 45.7 % Normal 41.0-52.0 [facility] Comment on above: Performed By: #### 5 7021-8 #### NIK CHAMPION ([id number]) [facility] ([facility]) [address] [place] [address] Hemoglobin (Bld) [Mass/Vol] 14.2 g/dL Normal 13.5-17.5 [facility] Comment on above: Performed By: #### 5 7021-8 #### NIK CHAMPOIN ([id number]) [facility] ([facility]) [address] [place] [address] 81341 Immature granulocytes (Bld) [#/Vol] 0.10 x10*3/uL Normal 0.00-0.50 [facility] Comment on above: Performed By: #### 5 7021-8 #### NIK CHAMPION ([id number]) [facility] ([facility]) [address] [place], [place] [id number] Immature granulocytes/100 WBC (Bld) 1.2 % High 0.0-0.9 [facility] Comment on above: Result Comment: Joyce ture Granulocyte Count (IG) includes promyelocytes, myelocytes and metamyelocytes but does not include bands. Percent differential counts (%) should be interpreted in the context of the absolute cell counts (cells/UL). Performed By: #### 5 7021-8 #### NIK CHAMPION ([id number]) [facility] ([facility]) [address] [place] [address] 22825 Lymphocytes (Bld) [#/Vol] 2.22 x10*3/uL Normal 0.80-3.00 [facility] Comment on above: Performed By: #### 5 7021-8 #### NIK CHAMPION ([id number]) [facility] ([facility]) [address] [place] [address] 50043 Lymphocytes/100 WBC (Bld) 25.6 % Normal 13.0-44.0 [facility] Comment on above: Performed By: #### 5 70-8 #### NIK CHAMPION ([id number]) [facility] ([facility]) [address] [place] [address] 58531 MCH (RBC) [Entitic mass] 28.6 pg Normal 26.0-34.0 [facility] Comment on above: Performed By: #### 5 7021-8 #### NIK CHAMPION ([id number]) [facility] ([facility]) [address] [place] [address] 06852 MCHC (RBC) [Mass/Vol] 31.1 g/dL Low 32.0-36.0 [facility] Comment on above: Performed By: #### 5 7021-8 #### NIK CHAMPION ([id number]) [facility] ([facility]) [address] [place] [address] 97385 MCV (RBC) [Entitic vol] 92 fL Normal 80-100 [facility] Comment on above: Performed By: #### 5 7021-8 #### NIK CHAMPION ([id number]) [facility] ([facility]) [address] [place] [address] 46926 Monocytes (Bld) [#/Vol] 0.57 x10*3/uL Normal 0.05-0.80 [facility] Comment on above: Performed By: #### 5 7021-8 #### NIK CHAMPION ([id number]) [facility] ([facility]) [address] [place] [address] 39943 Monocytes/100 WBC (Bld) 6.6 % Normal 2.0-10.0 [facility] Comment on above: Performed By: #### 7021-8 #### NIK CHAMPION ([id number]) [facility] ([facility]) [address] [place] [address] 99126 Neutrophils (Bld) [#/Vol] 5.42 x10*3/uL Normal 1.60-5.50 [facility] Comment on above: Result Comment: Perc ent differential counts (%) should be interpreted in the context of the absolute cell counts (cells/uL). Performed By: #### 5 7021-8 #### NIK CHAMPION ([id number]) [facility] ([facility]) [address] [place] [address] 37867 Neutrophils/100 WBC (Bld) 62.3 % Normal 40.0-80.0 [facility] Comment on above: Performed By: #### 5 7021-8 #### NIK CHAMPION ([id number]) [facility] ([facility]) [address] [place] [address] 75533 Nucleated RBC/100 WBC (Bld) [Ratio] 0.0 /100 WBCs Normal 0.0-0.0 [facility] Comment on above: Performed By: #### 5 7021-8 #### NIK CHAMPION ([id number]) [facility] ([facility]) [address] [place] [address] 95357 Platelets (Bld) [#/Vol] 378 x10*3/uL Normal 150-450 [facility] Comment on above: Performed By: #### 5 7021-8 #### NIK CHAMPION ([id number]) [facility] ([facility]) [address] [place] [address] 58668 RBC (Bld) [#/Vol] 4.96 x10*6/uL Normal 4.50-5.90 [facility] Comment on above: Performed By: #### 5 7021-8 #### NIK CHAMPION ([id number]) [facility] ([facility]) [address] [place] [address] 48888 WBC (Bld) [#/Vol] 8.7 x10*3/uL Normal 4.4-11.3 [facility] Comment on above: Performed By: #### 5 7021-8 #### NIK CHAMPION ([id number]) [facility] ([facility]) [address] [place] [address] Comprehensive metabolic 2000 panelon 04-02-2024 Albumin BCP dye [Mass/Vol] 3.6 g/dL Normal 3.4-5.0 [facility] Comment on above: Performed By: #### 2 4323-8 #### NIK CHAMPION ([id number]) [facility] ([facility]) [address] [place] [address] ALP [Catalytic activity/Vol] 98 U/L Normal 33-136 [facility] Comment on above: Performed By: #### 2 4323-8 #### NIK CHAMPION ([id number]) [facility] ([facility]) [address] [place] [address] 12194 ALT With P-5'-P [Catalytic activity/Vol] 17 U/L Normal 10-52 [facility] Comment on above: Result Comment: Ana ents treated with Sulfasalazine may generate falsely decreased results for ALT. Performed By: #### 2 4323-8 #### NIK CHAMPION ([id number]) [facility] ([facility]) [address] [place] [address] Anion gap [Moles/Vol] 12 mmol/L Normal 10-20 [facility] Comment on above: Performed By: #### 2 4323-8 #### NIK CHAMPION ([id number]) [facility] ([facility]) [facility] [place] [address] AST With P-5'-P [Catalytic activity/Vol] 11 U/L Normal 9-39 [facility] Comment on above: Performed By: #### 2 4323-8 #### NIK CHAMPION ([id number]) [facility] ([facility]) [facility] [place] [address] Bilirubin [Mass/Vol] 0.7 mg/dL Normal 0.0-1.2 [facility] Comment on above: Performed By: #### 2 4323-8 #### NIK CHAMPION ([id number]) [facility] ([facility]) [address] [place] [address] 69701 Calcium [Mass/Vol] 9.2 mg/dL Normal 8.6-10.3 [facility] Comment on above: Performed By: #### 2 4323-8 #### NIK CHAMPION ([id number]) [facility] ([facility]) [address] [place] [address] Chloride [Moles/Vol] 103 mmol/L Normal 98-107 [facility] Comment on above: Performed By: #### 2 4323-8 #### NIK CHAMPION ([id number]) [facility] ([facility]) [address] [place] [address] CO2 [Moles/Vol] 30 mmol/L Normal 21-[address] [facility] Comment on above: Performed By: #### 2 4323-8 #### NIK CHAMPION ([id number]) [facility] ([facility]) [address] [place] [address] 63600 Creatinine [Mass/Vol] 0.71 mg/dL Normal 0.50-1.30 [facility] Comment on above: Performed By: #### 2 4323-8 #### NIK CHAMPION ([id number]) [facility] ([facility]) [address] [place] [address] 91170 GFR/1.73 sq M.predicted MDRD (S/P/Bld) [Vol rate/Area] mL/min/{1.73_m2} Normal >60 [facility] Comment on above: Result Comment: Calc ulations of estimated GFR are performed using the 2020 CKD-EPI Study Refit equation without the race variable for the IDMS-Traceable creatinine methods. https://jasn.asnjournals.org/content/early//ASN.30236752 88 Performed By: #### 2 4323-8 #### NIK CHAMPION ([id number]) [facility] ([facility]) [address] [place] [address] 72805 Glucose [Mass/Vol] 85 mg/dL Normal 74-99 [facility] Comment on above: Performed By: #### 2 4323-8 #### NIK CHAMPION ([id number]) [facility] ([facility]) [facility] [place] [address] Potassium [Moles/Vol] 4.6 mmol/L Normal 3.5-5.3 [facility] Comment on above: Performed By: #### 2 4323-8 #### NIK CHAMPION ([id number]) [facility] ([facility]) [address] [place] [address] 97751 Protein [Mass/Vol] 6.2 g/dL Low 6.4-8.2 [facility] Comment on above: Performed By: #### 2 4323-8 #### NIK CHAMPION ([id number]) [facility] ([facility]) [address] [place] [address] 37925 Sodium [Moles/Vol] 140 mmol/L Normal 136-145 [facility] Comment on above: Performed By: #### 2 4323-8 #### NIK CHAMPION ([id number]) [facility] ([facility]) [address] [place] [address] 88419 Urea nitrogen [Mass/Vol] 13 mg/dL Normal 6-23 [facility] Comment on above: Performed By: #### 2 4323-8 #### NIK CHAMPION ([id number]) [facility] ([facility]) [address] [place] [address] 57325 Lipid 1996 panelon 4 Cholesterol [Mass/Vol] 137 mg/dL Normal 0-199 [facility] Comment on above: Result Comment: Age Desirable Borderline High High 0-19 Y 0 - 169 170 - 199 >/= 200 20-24 Y 0 - 189 190 - 224 >/= 225 >24 Y 0 - 199 200 - 239 >/= 240 All ranges are based on fasting samples. Specific therapeutic targets will vary based on patient-specific cardiac risk. Pediatric guidelines reference:Pediatrics 2011, 128(S5).Adult guidelines reference: NCEP ATPIII Guidelines,DENITA 2001, 258:2486-97 Venipuncture immediately after or during the administration of Metamizole may lead to falsely low results. Testing should be performed immediately prior to Metamizole dosing. Performed By: #### 2 4331-1 #### NIK CHAMPION ([id number]) [facility] ([facility]) [facility] [place] [address] Cholesterol in HDL [Mass/Vol] 39.0 mg/dL Normal [facility] Comment on above: Result Comment: Age Very Low Low Normal High 0-19 Y < 35 < 40 40-45 ---- 20-24 Y ---- < 40 >45 ---- >24 Y ---- < 40 40-60 >60 Performed By: #### 2 4331-1 #### NIK CHAMPION ([id number]) [facility] ([facility]) [address] [place] [address] 89202 Cholesterol in LDL [Mass/Vol] 82 mg/dL Normal <=99 [facility] Comment on above: Result Comment: Near Borderline AGE Desirable Optimal High High Very High 0-19 Y 0 - 109 --- 110-129 >/= 130 ---- 20-24 Y 0 - 119 --- 120-159 >/= 160 ---- >24 Y 0 - 99 100-129 130-159 160-189 >/=190 Performed By: #### 2 4331-1 #### NIK CHAMPION ([id number]) [facility] ([facility]) [address] [place] [address] 57196 Cholesterol in VLDL [Mass/Vol] 16 mg/dL Normal 0-40 [facility] Comment on above: Performed By: #### 2 4331-1 #### NIK CHAMPION ([id number]) [facility] ([facility]) [address] [place] [address] 25571 CHOLESTEROL/HDL RATIO 3.5 Normal [facility] Comment on above: Result Comment: Ref Values Desirable < 3.4 High Risk > 5.0 Performed By: #### 2 4331-1 #### NIK CHAMPION ([id number]) [facility] ([facility]) [address] [place] [address] 21693 NON HDL CHOLESTEROL 98 mg/dL Normal 0-149 [facility] Comment on above: Result Comment: Age Desirable Borderline High High Very High 0-19 Y 0 - 119 120 - 144 >/= 145 >/= 160 20-24 Y 0 - 149 150 - 189 >/= 190 ---- >24 Y 30 mg/dL above LDL Cholesterol goal Performed By: #### 2 4331-1 #### NIK CHAMPION ([id number]) [facility] ([facility]) [address] [place] [address] 37014 Triglyceride [Mass/Vol] 82 mg/dL Normal 0-149 [facility] Comment on above: Result Comment: Age Desirable Borderline High High Very High 0 D-90 D 19 - 174 ---- ---- ---- 91 D- 9 Y 0 - 74 75 - 99 >/= 100 ---- 10-19 Y 0 - 89 90 - 129 >/= 130 ---- 20-24 Y 0 - 114 115 - 149 >/= 150 ---- >24 Y 0 - 149 150 - 199 200- 499 >/= 500 Venipuncture immediately after or during the administration of Metamizole may lead to falsely low results. Testing should be performed immediately prior to Metamizole dosing. Performed By: #### 2 4331-1 #### NIK CHAMPION ([id number]) [facility] ([facility]) [address] [place] [address] 77635 TSH WITH REFLEX TO FREE T4 I F ABNORMALon 04-02-2024 TSH Qn 1.52 m[IU]/L Normal 0.44-3.98 [facility] Comment on above: Order Comment: TSH t esting is performed using different testing methodology at [facility] than at other [facility]. Direct result comparisons should only be made within the same method. Performed By: #### 2 4323-8 #### NIK CHAMPION ([id number]) [facility] ([facility]) [address] [place] [address] 18488 Creatinineon 03-28-2024 Creatinine [Mass/Vol] 0.64 mg/dL Normal 0.50-1.30 [facility] Comment on above: Performed By: #### 2 160-0 #### NIK CHAMPION ([id number]) [facility] ([facility]) [address] [place] [address] 12441 Creatinine [Mass/Vol]on GFR/1.73 sq M.predicted MDRD (S/P/Bld) [Vol rate/Area] mL/min/{1.73_m2} Normal >60 [facility] Comment on above: Result Comment: Calc ulations of estimated GFR are performed using the 2020 CKD-EPI Study Refit equation without the race variable for the IDMS-Traceable creatinine methods. https://jasn.asnjournals.org/content/early/ASN.55525207 88 Performed By: #### 2 160-0 #### ZARAGOZA AKIRA ([id number]) [facility] ([facility]) [address] [place] [address] Prostate specific Agon 03-28 Prostate specific Ag [Mass/Vol] 2.77 ng/mL Normal <=4.00 [facility] Comment on above: Order Comment: The F DA requires that the method used for PSA assay be reported to the physician. Values obtained with different assay methods must not be used interchangeably. This test was performed at [facility] using the Pirate3D PSA assay is a two-site immunoenzymatic sandwich assay. The assay is approved for measurement of prostate-specific antigen (PSA)in serum and may be used in conjunction with a digital rectal examination in men 50 years and older as an aid in detection of prostate cancer. 2-Hqoly-mvwgsxqtc inhibitors (e.g. Proscar, Finasteride, Avodart, Dutasteride and Viry) for the treatment of BPH have been shown to lower PSA levels by an average of 50% after 6 months of treatment. Performed By: #### 2 857-1 #### NIK CHAMPION ([id number]) [facility] ([facility]) [address] [place] [id number] XR CHEST 2 VIEWSon 4 XR CHEST 2 VIEWS Interpreted By: Faviola Todd, STUDY: XR CHEST 2 VIEWS; 03/28/2024 12:00 pm INDICATION: Signs/Symptoms:weight loss, fatigue. COMPARISON: None. ACCESSION NUMBER(S): [id number] ORDERING CLINICIAN: SIRISHA KAUR FINDINGS: The heart is normal in size. There is no consolidation or pleural fluid. The mediastinum and bones are unremarkable. COMPARISON OF FINDING: IMPRESSION: No acute cardiopulmonary disease. MACRO: none Signed by: Faviola Todd 03/29/2024 4:02 PM Dictation workstation: [id number] [facility] COLONOSCOPYon 11-29-2023 Colonoscopy Table formatting fro m the original result was not included. Impression Diverticulosis of mild severity in the sigmoid colon Findings Few small diverticula of mild severity with no inflammation in the sigmoid colon; no bleeding was identified Recommendation Follow up with PCP No further screening colonoscopies necessary Indication Colon cancer screening Staff Staff Role No Staff Documented Medications meperidine PF (Demerol) injection 25 mg midazolam PF (Versed) injection 2.5 mg (Totals for administrations occurring from 1202 to 1236 on 11/29/23) Preprocedure A history and physical has been performed, and patient medication allergies have been reviewed. The patient's tolerance of previous anesthesia has been reviewed. The risks and benefits of the procedure and the sedation options and risks were discussed with the patient and patient's partner. All questions were answered and informed consent obtained. Details of the Procedure The patient underwent moderate sedation, which was administered by the procedural nurse. The patient's blood pressure, ECG, ETCO2, heart rate, level of consciousness, oxygen and respirations were monitored throughout the procedure. A digital rectal exam was performed. The scope was introduced through the anus and advanced to the cecum. Retroflexion was performed in the rectum. The quality of bowel preparation was evaluated using the Preemption Bowel Preparation Scale with scores of: right colon = 3, transverse colon = 3, left colon = 3. The total BBPS score was 9. Bowel prep was adequate. The patient experienced no blood loss. The procedure was not difficult. The patient tolerated the procedure well. There were no apparent adverse events. Events Procedure Events Event Event Time ENDO SCOPE IN TIME 11/29/2023 12:13 PM ENDO CECUM REACHED 11/29/2023 12:21 PM ENDO SCOPE OUT TIME 11/29/2023 12:32 PM Specimens No specimens collected Procedure Location [address] [address] Referring Provider Tim Hernandez DO Procedure Provider Tim Hernandez DO [facility] Colonoscopy studyon 11-29-19 Table formatting fro m the original result was not included. Impression Diverticulosis of mild severity in the sigmoid colon Findings Few small diverticula of mild severity with no inflammation in the sigmoid colon; no bleeding was identified Recommendation Follow up with PCP No further screening colonoscopies necessary Indication Colon cancer screening Staff Staff Role No Staff Documented Medications meperidine PF (Demerol) injection 25 mg midazolam PF (Versed) injection 2.5 mg (Totals for administrations occurring from 1202 to 1236 on 11/29/23) Preprocedure A history and physical has been performed, and patient medication allergies have been reviewed. The patient's tolerance of previous anesthesia has been reviewed. The risks and benefits of the procedure and the sedation options and risks were discussed with the patient and patient's partner. All questions were answered and informed consent obtained. Details of the Procedure The patient underwent moderate sedation, which was administered by the procedural nurse. The patient's blood pressure, ECG, ETCO2, heart rate, level of consciousness, oxygen and respirations were monitored throughout the procedure. A digital rectal exam was performed. The scope was introduced through the anus and advanced to the cecum. Retroflexion was performed in the rectum. The quality of bowel preparation was evaluated using the Preemption Bowel Preparation Scale with scores of: right colon = 3, transverse colon = 3, left colon = 3. The total BBPS score was 9. Bowel prep was adequate. The patient experienced no blood loss. The procedure was not difficult. The patient tolerated the procedure well. There were no apparent adverse events. Events Procedure Events Event Event Time ENDO SCOPE IN TIME 11/29/2023 12:13 PM ENDO CECUM REACHED 11/29/2023 12:21 PM ENDO SCOPE OUT TIME 11/29/2023 12:32 PM Specimens No specimens collected Procedure Location [address] [address] Referring Provider Tim Hernandez DO Procedure Provider Tim Hernandez DO [facility] Work Phone: [facility] Work Phone: Radiology Study observation (narrative) [facility] Work Phone: [facility] US ABDOMINAL AORTA ANEU RYSM AAA SCREENINGon 10-31-2023 VAS US ABDOMINAL AORTA [place]EURYSM [place] [address] ext-2528, Vascular Lab Report [facility] ABDOMINAL AORTA ANEURYSM AAA SCREENING Patient Name: SUKHDEV Johnson DAVID Lloyd Physician: [id number] Vizcaino MD Study Date: 10/31/2023 Ordering Provider: [id number] KAUR MRN/PID: [id number] Fellow: Technologist: Mc Bell RVT Date of /Age: 410/16/1950 / 73 years Technologist 2: Gender: M Admission Status: Outpatient Location Performed: [facility] Diagnosis/ICD: Encounter for screening for cardiovascular disorders (AAA)-Z13.6 CPT Codes: 71855 Ultrasound, abdominal aorta, real time with image documentation, screening study for (AAA) CONCLUSIONS: Aorta/Common Iliac Arteries/IVC: The abdominal aorta and bilateral common iliac arteries demonstrate no evidence of aneurysm. Calcified plaque is noted throughout the aorta. Imaging & Doppler Findings: AORTA AP Lateral PSV Mid 1.86 cm 1.86 cm 116.0 cm/s 40595 Leoncio Vizcaino MD Final Normal [facility] CBC panel Auto (Bld)on 05-27 Erythrocyte distribution width (RBC) [Ratio] 13.1 % Normal 11.5-14.5 [facility] Comment on above: Performed By: #### 5 8410-2 #### NIK CHAMPION ([id number]) [facility] ([facility]) [address] [place] [address] 28087 Hematocrit (Bld) [Volume fraction] 49.6 % Normal 41.0-52.0 [facility] Comment on above: Performed By: #### 5 8410-2 #### NIK CHAMPION ([id number]) [facility] ([facility]) [address] [place] [address] 57721 Hemoglobin (Bld) [Mass/Vol] 15.7 g/dL Normal 13.5-17.5 [facility] Comment on above: Performed By: #### 5 8410-2 #### NIK CHAMPION ([id number]) [facility] ([facility]) [address] [place] [address] 18639 MCH (RBC) [Entitic mass] 29.7 pg Normal 26.0-34.0 [facility] Comment on above: Performed By: #### 5 8410-2 #### NIK CHAMPION ([id number]) [facility] ([facility]) [address] [place] [address] 55757 MCHC (RBC) [Mass/Vol] 31.7 g/dL Low 32.0-36.0 [facility] Comment on above: Performed By: #### 5 8410-2 #### NIK CHAMPION ([id number]) [facility] ([facility]) [address] [place] [address] 69760 MCV (RBC) [Entitic vol] 94 fL Normal 80-100 [facility] Comment on above: Performed By: #### 5 8410-2 #### NIK CHAMPION ([id number]) [facility] ([facility]) [address] [place] [address] 92327 Nucleated RBC/100 WBC (Bld) [Ratio] 0.0 /100 WBCs Normal 0.0-0.0 [facility] Comment on above: Performed By: #### 5 8410-2 #### NIK CHAMPION ([id number]) [facility] ([facility]) [address] [place] [address] 42103 Platelets (Bld) [#/Vol] 301 x10*3/uL Normal 150-450 [facility] Comment on above: Performed By: #### 5 8410-2 #### NIK CHAMPION ([id number]) [facility] ([facility]) [address] [place] [address] 87352 RBC (Bld) [#/Vol] 5.28 x10*6/uL Normal 4.50-5.90 [facility] Comment on above: Performed By: #### 5 8410-2 #### NIK CHAMPION ([id number]) [facility] ([facility]) [address] [place] [address] WBC (Bld) [#/Vol] 7.5 x10*3/uL Normal 4.4-11.3 [facility] Comment on above: Performed By: #### 5 8410-2 #### NIK CHAMPION ([id number]) [facility] ([facility]) [address] [place] [address] Comprehensive metabolic 2000 panelon 05-27-2023 Albumin BCP dye [Mass/Vol] 4.3 g/dL Normal 3.4-5.0 [facility] Comment on above: Performed By: #### 2 4323-8 #### NIK CHAMPION ([id number]) [facility] ([facility]) [address] [place] [address] ALP [Catalytic activity/Vol] 75 U/L Normal 33-136 [facility] Comment on above: Performed By: #### 2 4323-8 #### NIK CHAMPION ([id number]) [facility] ([facility]) [address] [place] [address] ALT With P-5'-P [Catalytic activity/Vol] 23 U/L Normal 10-52 [facility] Comment on above: Result Comment: Ana ents treated with Sulfasalazine may generate falsely decreased results for ALT. Performed By: #### 2 4323-8 #### NIK CHAMPION ([id number]) [facility] ([facility]) [address] [place] [address] 62035 Anion gap [Moles/Vol] 8 mmol/L Low 10-20 [facility] Comment on above: Performed By: #### 2 4323-8 #### NIK CHAMPION ([id number]) [facility] ([facility]) [address] [place] [address] 48022 AST With P-5'-P [Catalytic activity/Vol] 15 U/L Normal 9-39 [facility] Comment on above: Performed By: #### 2 4323-8 #### NIK CHAMPION ([id number]) [facility] ([facility]) [address] [place] [address] 67342 Bilirubin [Mass/Vol] 0.5 mg/dL Normal 0.0-1.2 [facility] Comment on above: Performed By: #### 2 4323-8 #### NIK CHAMPION ([id number]) [facility] ([facility]) [address] [place] [address] 11827 Calcium [Mass/Vol] 9.4 mg/dL Normal 8.6-10.3 [facility] Comment on above: Performed By: #### 2 4323-8 #### NIK CHAMPION ([id number]) [facility] ([facility]) [address] [place] [address] 72278 Chloride [Moles/Vol] 104 mmol/L Normal 98-107 [facility] Comment on above: Performed By: #### 2 4323-8 #### NIK CHAMPION ([id number]) [facility] ([facility]) [address] [place] [address] 92148 CO2 [Moles/Vol] 31 mmol/L Normal 21-[address] [facility] Comment on above: Performed By: #### 2 4323-8 #### NIK CHAMPION ([id number]) [facility] ([facility]) [address] [place] [address] 31214 Creatinine [Mass/Vol] 0.71 mg/dL Normal 0.50-1.30 [facility] Comment on above: Performed By: #### 2 4323-8 #### NIK CHAMPION ([id number]) [facility] ([facility]) [address] [place] [address] 98318 GFR/1.73 sq M.predicted MDRD (S/P/Bld) [Vol rate/Area] mL/min/{1.73_m2} Normal >60 [facility] Comment on above: Result Comment: Calc ulations of estimated GFR are performed using the 2020 CKD-EPI Study Refit equation without the race variable for the IDMS-Traceable creatinine methods. https://jasn.asnjournals.org/content//ASN.45674980 88 Performed By: #### 2 4323-8 #### NIK CHAMPION ([id number]) [facility] ([facility]) [address] [place] [address] Glucose [Mass/Vol] 85 mg/dL Normal 74-99 [facility] Comment on above: Performed By: #### 2 4323-8 #### NIK CHAMPION ([id number]) [facility] ([facility]) [address] [place] [address] Potassium [Moles/Vol] 4.1 mmol/L Normal 3.5-5.3 [facility] Comment on above: Performed By: #### 2 4323-8 #### NIK CHAMPION ([id number]) [facility] ([facility]) [address] [place] [address] 05185 Protein [Mass/Vol] 6.9 g/dL Normal 6.4-8.2 [facility] Comment on above: Performed By: #### 2 4323-8 #### NIK CHAMPION ([id number]) [facility] ([facility]) [address] [place] [address] 06415 Sodium [Moles/Vol] 139 mmol/L Normal 136-145 [facility] Comment on above: Performed By: #### 2 4323-8 #### NIK CHAMPION ([id number]) [facility] ([facility]) [facility] [place] [address] Urea nitrogen [Mass/Vol] 17 mg/dL Normal 6-23 [facility] Comment on above: Performed By: #### 2 4323-8 #### NIK CHAMPION ([id number]) [facility] ([facility]) [facility] [place] [address] Lipid 1996 panelon 3 Cholesterol [Mass/Vol] 138 mg/dL Normal 0-199 [facility] Comment on above: Result Comment: Age Desirable Borderline High High 0-19 Y 0 - 169 170 - 199 >/= 200 20-24 Y 0 - 189 190 - 224 >/= 225 >24 Y 0 - 199 200 - 239 >/= 240 All ranges are based on fasting samples. Specific therapeutic targets will vary based on patient-specific cardiac risk. Pediatric guidelines reference:Pediatrics 2011, 128(S5).Adult guidelines reference: NCEP ATPIII Guidelines,DENITA 2001, 258:2486-97 Venipuncture immediately after or during the administration of Metamizole may lead to falsely low results. Testing should be performed immediately prior to Metamizole dosing. Performed By: #### 2 4331-1 #### NIK CHAMPION ([id number]) [facility] ([facility]) [address] [place] [address] 96391 Cholesterol in HDL [Mass/Vol] 43.0 mg/dL Normal [facility] Comment on above: Result Comment: Age Very Low Low Normal High 0-19 Y < 35 < 40 40-45 ---- 20-24 Y ---- < 40 >45 ---- >24 Y ---- < 40 40-60 >60 Performed By: #### 2 4331-1 #### NIK CHAMPION ([id number]) [facility] ([facility]) [address] [place] [address] 79735 Cholesterol in LDL [Mass/Vol] 72 mg/dL Normal <=99 [facility] Comment on above: Result Comment: Near Borderline AGE Desirable Optimal High High Very High 0-19 Y 0 - 109 --- 110-129 >/= 130 ---- 20-24 Y 0 - 119 --- 120-159 >/= 160 ---- >24 Y 0 - 99 100-129 130-159 160-189 >/=190 Performed By: #### 2 4331-1 #### NIK CHAMPION ([id number]) [facility] ([facility]) [address] [place] [address] 53812 Cholesterol in VLDL [Mass/Vol] 23 mg/dL Normal 0-40 [facility] Comment on above: Performed By: #### 2 4331-1 #### NIK CHAMPION ([id number]) [facility] ([facility]) [address] [place] [address] 38668 CHOLESTEROL/HDL RATIO 3.2 Normal [facility] Comment on above: Result Comment: Ref Values Desirable < 3.4 High Risk > 5.0 Performed By: #### 2 4331-1 #### NIK CHAMPION ([id number]) [facility] ([facility]) [address] [place] [address] 59826 NON HDL CHOLESTEROL 95 mg/dL Normal 0-149 [facility] Comment on above: Result Comment: Age Desirable Borderline High High Very High 0-19 Y 0 - 119 120 - 144 >/= 145 >/= 160 20-24 Y 0 - 149 150 - 189 >/= 190 ---- >24 Y 30 mg/dL above LDL Cholesterol goal Performed By: #### 2 4331-1 #### NIK CHAMPION ([id number]) [facility] ([facility]) [address] [place] [address] 75986 Triglyceride [Mass/Vol] 114 mg/dL Normal 0-149 [facility] Comment on above: Result Comment: Age Desirable Borderline High High Very High 0 D-90 D 19 - 174 ---- ---- ---- 91 D- 9 Y 0 - 74 75 - 99 >/= 100 ---- 10-19 Y 0 - 89 90 - 129 >/= 130 ---- 20-24 Y 0 - 114 115 - 149 >/= 150 ---- >24 Y 0 - 149 150 - 199 200- 499 >/= 500 Venipuncture immediately after or during the administration of Metamizole may lead to falsely low results. Testing should be performed immediately prior to Metamizole dosing. Performed By: #### 2 4331-1 #### NIK CHAMPION ([id number]) [facility] ([facility]) [address] [place] [address] 98374 Prostate specific Agon 05-27 Prostate specific Ag [Mass/Vol] 1.02 ng/mL Normal <=4.00 [facility] Comment on above: Order Comment: The F DA requires that the method used for PSA assay be reported to the physician. Values obtained with different assay methods must not be used interchangeably. This test was performed at [facility] using the Pirate3D PSA assay is a two-site immunoenzymatic sandwich assay. The assay is approved for measurement of prostate-specific antigen (PSA)in serum and may be used in conjunction with a digital rectal examination in men 50 years and older as an aid in detection of prostate cancer. 9-Cbvsb-ewzuxnlkq inhibitors (e.g. Proscar, Finasteride, Avodart, Dutasteride and Viry) for the treatment of BPH have been shown to lower PSA levels by an average of 50% after 6 months of treatment. Performed By: #### 2 857-1 #### NIK CHAMPION ([id number]) [facility] ([facility]) [address] [place] [address] TSH WITH REFLEX TO FREE T4 I F ABNORMALon 05-27-2023 TSH Qn 1.94 m[IU]/L Normal 0.44-3.98 [facility] Comment on above: Order Comment: TSH t esting is performed using different testing methodology at [facility] than at other [facility]. Direct result comparisons should only be made within the same method. Performed By: #### T SARAH #### NIK CHAMPION ([id number]) [facility] ([facility]) [address] [place] [address] [facility] Venous Duplex Ultra sound DVTon 07-14-2022 [facility] [place]ous [place] [address] ext-[phone], Vascular Lab Report Lower Venous Duplex Ultrasound Patient Name: SUKHDEV ALEXANDRE Reading Physician: [id number] Leoncio Vizcaino MD Study Date: 07/14/2022 Referring Physician: SUKHDEV PARKER MRN/PID: [id number] PCP: Accession/Order#: [id number] CC Report to: Date of : 1950 Technologist: Lety Fraser RVT Gender: M Technologist 2: Admission Status: Outpatient Location Performed: [facility] Diagnosis/ICD: R60.0-Localized (leg) edema Procedure/CPT: 60768 Peripheral venous duplex scan for DVT Limited-23219 CONCLUSIONS: Right Lower Venous: No evidence of acute deep vein thrombus visualized in the right lower extremity. Cystic structure within the right popliteal space. No color or spectral doppler flow is noted. An approxiamate measurement is 6.8cm x 5.3cm. Left Lower Venous: Left common femoral vein is negative for deep vein thrombus. No evidence of deep vein thrombosis of the left external iliac vein. Imaging AND Doppler Findings: Right Compress Thrombus SFJ Yes None Right Compressible Thrombus Flow Distal External Iliac Yes None CFV Yes None Spontaneous/Phasic PFV Yes None FV Proximal Yes None Spontaneous/Phasic FV Mid Yes None FV Distal Yes None Popliteal Yes None Spontaneous/Phasic Peroneal Yes None PTV Yes None Left Compress Thrombus Flow Distal External Iliac No None CFV No None Spontaneous/Phasic 72430 Leoncio Vizcaino MD Final Normal [facility] Vital Signs Date Time Vital Sign Value Performing Clinician Facility 03-28-2024 11:00-0400 Body height 175.3 cm Sirisha Vincent [employer]EL[employer]ENTRY ANALYST Work Phone: [facility] 03-28-2024 11:00-0400 Body mass index (BMI) [Ratio] 27.08 kg/m2 Sirisha Vincent [employer]EL[employer]-ENTRY ANALYST Work Phone: [facility] 03-28-2024 11:00-0400 Body weight 83.19 kg Sirisha Vincent [employer] DEVELOPER-ENTRY ANALYST Work Phone: [facility] 03-28-2024 11:00-0400 Diastolic blood pressure 63 mm[Hg] Sirisha Vincent [employer] DEVELOPER-ENTRY ANALYST Work Phone: [facility] 03-28-2024 11:00-0400 Heart rate 51 /min Sirisha Callawayman [employer] DEVELOPER-ENTRY ANALYST Work Phone: [facility] 03-28-2024 11:00-0400 Systolic blood pressure 125 mm[Hg] Sirisha Vincent [employer] DEVELOPER-ENTRY ANALYST Work Phone: [facility] 11-29-2023 13:20-0400 Diastolic blood pressure 72 mm[Hg] Tim Thomae DO Work Phone: [facility] 11-29-2023 13:20-0400 Heart rate 49 /min Tim Thomae DO Work Phone: [facility] 11-29-2023 13:20-0400 Respiratory rate 18 /min Tim Thomae DO Work Phone: [facility] 11-29-2023 13:20-0400 SaO2% (BldA) [Mass fraction] 97 % Tim Hernandez DO Work Phone: [facility] 11-29-2023 13:20-0400 Systolic blood pressure 147 mm[Hg] Tim Hunterae DO Work Phone: [facility] 11-29-2023 12:34-0400 Body temperature 97 [degF] Tim Hunterae DO Work Phone: [facility] 11-29-2023 11:42-0400 Body height 175.3 cm Tim Hunterae DO Work Phone: [facility] 11-29-2023 11:42-0400 Body mass index (BMI) [Ratio] 28.9 kg/m2 Tim Hunterae DO Work Phone: [facility] 11-29-2023 11:42-0400 Body weight 88.8 kg Tim Hunterae DO Work Phone: [facility] 07-18-2023 16:21-0500 Body height 175.3 cm Mary Newbill PA-C Work Phone: [facility] 07-18-2023 16:21-0500 Body mass index (BMI) [Ratio] 30.82 kg/m2 Mary Newbill PA-C Work Phone: [facility] 07-18-2023 16:21-0500 Body temperature 98.6 [degF] Mary Newbill PA-C Work Phone: [facility] 07-18-2023 16:21-0500 Body weight 94.67 kg Mary Newbill PA-C Work Phone: [facility] 07-18-2023 16:21-0500 Diastolic blood pressure 62 mm[Hg] Mary Newbill PA-C Work Phone: [facility] 07-18-2023 16:21-0500 Heart rate 59 /min Mary Newbill PA-C Work Phone: [facility] 07-18-2023 16:21-0500 Systolic blood pressure 141 mm[Hg] Mary Newbill PA-C Work Phone: [facility] 05-24-2023 13:44-0500 Body height 175.3 cm Mary Newbill PA-C Work Phone: [facility] 05-24-2023 13:44-0500 Body mass index (BMI) [Ratio] 29.74 kg/m2 Mary Newbill PA-C Work Phone: [facility] 05-24-2023 13:44-0500 Body temperature 97.81 [degF] Mary Newbill PA-C Work Phone: [facility] 05-24-2023 13:44-0500 Body weight 91.35 kg Mary Newbill PA-C Work Phone: [facility] 05-24-2023 13:44-0500 Diastolic blood pressure 53 mm[Hg] Mary Newbill PA-C Work Phone: [facility] 05-24-2023 13:44-0500 Heart rate 87 /min Mary Newbill PA-C Work Phone: [facility] 05-24-2023 13:44-0500 SaO2% (BldA) [Mass fraction] 95 % Mary Newbill PA-C Work Phone: [facility] 05-24-2023 13:44-0500 Systolic blood pressure 122 mm[Hg] Mary Newbill PA-C Work Phone: [facility] Encounters Encounter Date Encounter Type Care Provider Facility Start: 04-02-2024 End: 04-02-2024 ambulatory SIRISHA [facility] Start: 04-02-2024 End: 04-02-2024 ambulatory SIRISHA Gordon [facility] Start: 04-02-2024 End: 04-02-2024 Encounter for general adult medical examination without abnormal findings SIRISHA Gordon [facility] Start: 03-28-2024 End: 03-28-2024 ambulatory [facility] Start: 03-28-2024 End: 03-28-2024 Subsequent hospital visit by physician Wilvre X-Ray 1 [facility] Comment on above: Weight loss Start: 03-28-2024 End: 03-28-2024 Office outpatient visit 25 minutes Sirisha Kaur [employer]EL[employer]-ENTRY ANALYST Work Phone: [facility] Comment on above: [place] of foot (Primar y Dx); Weight loss; Abnormal kidney function; Drooling; Tremor of left hand; Screening for prostate cancer Start: 03-28-2024 End: 03-28-2024 ambulatory [facility] Comment on above: [place] of foot (Primar y Dx) Start: 11-29-2023 End: 11-29-2023 Subsequent hospital visit by physician Tim Hernandez DO Work Phone: [facility] Comment on above: Colon cancer screeni ng Start: 11-29-2023 End: 11-29-2023 ambulatory TIM HERNANDEZ [facility] Start: 10-31-2023 End: 10-31-2023 Subsequent hospital visit by physician Wilver Velazquez 2 [facility] Comment on above: Screening for AAA (a bdominal aortic aneurysm) Start: 10-31-2023 End: 10-31-2023 ambulatory [facility] Start: 10-26-2023 End: 10-26-[address] [facility] Start: 10-26-2023 End: 10-26-2023 Encounter for general adult medical examination without abnormal findings [facility] Start: 07-18-2023 End: 07-18-2023 Office outpatient visit 25 minutes Mary Ramos PA-C Work Phone: [facility] Comment on above: Dyslipidemia (Primar y Dx); Adverse effect of drug, initial encounter Start: 07-18-2023 End: 07-18-2023 ambulatory [facility] Start: 06-02-2023 End: 09-02-2023 ambulatory PASTORA Johnson ANJALILUIZ Facility:[facility] Start: 05-27-2023 End: 05-27-2023 ambulatory SUKHDEV PARKER [facility] Start: 05-24-2023 End: 05-24-2023 ambulatory [facility] Start: 05-24-2023 End: 05-24-2023 Office outpatient new 30 minutes Mary Ramos PA-C Work Phone: [facility] Comment on above: Dyslipidemia (Primar y Dx); Chronic pain of both hips; Encounter for screening for malignant neoplasm of prostate Start: 07-14-[address] Sukhdev Parker Facility:[id number] Start: 09-02-2017 End: 09-02-2017 Ambulatory Tim Hernandez Facility:[facility] Procedures Date Procedure Procedure Detail Performing Clinician Start: 11-29-2023 Colon ca scrn not hi rsk ind Tim Hernandez DO Work Phone: Start: 11-29-2023 PULSE OXIMETRY, SPOT Da le R Mary DO Work Phone: Start: 11-29-2023 Colonoscopy Tim Garcias e DO Work Phone: Start: 10-31-2023 VASC US ABDOMINAL AO RTA ANEURYSM AAA SCREENING SIRISHA KAUR Start: 10-31-2023 Us abdominal aorta r eal time screen study aaa Sirisha Kaur [employer] APPLICATION DEVELOPER-ENTRY ANALYST Work Phone: Start: 05-27-2023 CBC panel - Blood by Automated count SIRISHA KAUR Start: 05-27-2023 Comprehensive metabo lic 2000 panel - Serum or Plasma SIRISHA KAUR Start: 05-27-2023 Lipid panel SIRISHA FATIMA AN Start: 05-27-2023 PROSTATE SPECIFIC AN TIGEN, SCREEN SIRISHA KAUR Start: 05-27-2023 TSH WITH REFLEX TO F REE T4 IF ABNORMAL SIRISHA KAUR Start: 05-27-2023 Lipid 1996 panel - S janak or Plasma Mary Ramos PA-C Work Phone: Plan of Treatment Date Care Activity Detail Author Start: 11-28-2033 Screening for malign ant neoplasm of colon Colonoscopy [facility] Start: 05-27-2028 Lipid panel Lipid Panel [facility] Start: 10-26-2024 Medicare Annual Well ness Visit Medicare Annual Wellness Visit (AWV) [facility] Start: 10-25-2024 End: 10-25-2024 Patient encounter procedure 10/25/2024 1:30 PM EDT Office Visit [facility] [address] [place] [address] Sirisha Kaur, [employer] APPLICATION DEVELOPER-ENTRY ANALYST [address] [facility] [place] [address] [facility] Start: 05-24-2024 End: 05-24-2024 Patient encounter procedure [facility] Start: 05-01-2024 End: 05-01-2024 Patient encounter procedure 05/01/2024 10:50 AM EST Office Visit [facility] [address] [place] [address] Sirisha Kaur, [employer] APPLICATION DEVELOPER-ENTRY ANALYST [address] [facility] [place] [address] [facility] Start: 04-02-2024 End: 04-02-2024 Patient encounter procedure 04/02/2024 2:00 PM EDT Office Visit [facility] Physician [facility] [address] [place] [address] Vickey Gutierrez, EARNEST [address] [place] [address] [facility] Physician [facility] Start: 03-28-2024 End: 03-28-2025 Creatinine [Mass/volume] in Serum or Plasma Creatinine, Serum Lab Routine Abnormal kidney function Expected: 03/28/2024 (Approximate), Expires: 03/28/2025 [facility] Work Phone: Comment on above: Expected: 03/28/2024 (Approximate), Expires: 03/28/2025 Start: 03-28-2024 End: 03-28-2025 CT Head WO and W contrast IV CT head w and wo IV contrast Imaging Routine Weight loss Drooling Tremor of left hand Expected: 03/28/2024, Expires: 03/28/2025 [facility] Service Area Work Phone: Comment on above: Expected: 03/28/2024 , Expires: 03/28/2025 Start: 03-28-2024 End: 03-28-2025 Prostate specific Ag [Mass/volume] in Serum or Plasma Prostate Spec.Ag,Screen Lab Routine Weight loss Screening for prostate cancer Expected: 03/28/2024 (Approximate), Expires: 03/28/2025 [facility] Work Phone: Comment on above: Expected: 03/28/2024 (Approximate), Expires: 03/28/2025 Start: 03-28-2024 End: 03-28-2025 XR Chest 2 Views [facility] Work Phone: Comment on above: Expected: 03/28/2024 , Expires: 03/28/2025 Once for 1 Occurrenc es starting 03/28/2024 until 03/28/2024 Start: 02-19-2024 COVID-19 Vaccine ( season) COVID-19 Vaccine ( season) [facility] Start: 02-19-2024 Influenza vaccination Influenza Vacc ine (#1) [facility] Start: 11-29-2023 End: 11-29-2023 Patient encounter procedure 11/29/2023 12:40 PM EDT Appointment [facility] [address] [place] [address] [phone] Tim Hernandez, DO [address] [facility] [address] [place] [address] [facility] Start: 08-02-2023 COVID-19 Vaccine ( season) COVID-19 Vaccine ( season) [facility] Start: 05-27-2023 COVID-19 Vaccine (5 - Moderna series) COVID-19 Vaccine (5 - Moderna series) [facility] Start: 05-24-2023 End: 05-24-2024 CBC panel - Blood by Automated count CBC Lab Routine Dyslipidemia Chronic pain of both hips Expected: 05/24/2023 (Approximate), Expires: 05/24/2024 [facility] Service Area Work Phone: Comment on above: Expected: 05/24/2023 (Approximate), Expires: 05/24/2024 Start: 05-24-2023 End: 05-24-2024 Comprehensive metabolic 2000 panel - Serum or Plasma Comprehensive Metabolic Panel Lab Routine Dyslipidemia Chronic pain of both hips Expected: 05/24/2023 (Approximate), Expires: 05/24/2024 [facility] Work Phone: Comment on above: Expected: 05/24/2023 (Approximate), Expires: 05/24/2024 Start: 05-24-2023 End: 05-24-2024 Lipid 1996 panel - Serum or Plasma Lipid Panel Lab Routine Dyslipidemia Chronic pain of both hips Expected: 05/24/2023 (Approximate), Expires: 05/24/2024 [facility] Work Phone: Comment on above: Expected: 05/24/2023 (Approximate), Expires: 05/24/2024 Start: 05-24-2023 End: 05-24-2024 Prostate specific Ag [Mass/volume] in Serum or Plasma Prostate Specific Antigen, Screen Lab Routine Encounter for screening for malignant neoplasm of prostate Expected: 05/24/2023 (Approximate), Expires: 05/24/2024 [facility] Work Phone: Comment on above: Expected: 05/24/2023 (Approximate), Expires: 05/24/2024 Start: 05-24-2023 End: 05-24-2024 TSH with reflex to Free T4 if abnormal TSH with reflex to Free T4 if abnormal Lab Routine Dyslipidemia Chronic pain of both hips Expected: 05/24/2023 (Approximate), Expires: 05/24/2024 [facility] Work Phone: Comment on above: Expected: 05/24/2023 (Approximate), Expires: 05/24/2024 Start: 10-17-2015 Abdominal aortic aneurysm screening Abdominal Aortic Aneurysm (AAA) Screening [facility] Start: 1972 DTaP/Tdap/Td Vaccine s (1 - Tdap) DTaP/Tdap/Td Vaccines (1 - Tdap) [facility] Start: 1968 Hepatitis C screening Hepatitis C Sc reening [facility] Start: 1950 Lipid panel Lipid Panel [facility] Start: 1950 Medicare Annual Well ness Visit Medicare Annual Wellness Visit (AWV) [facility] Start: 1950 Screening for malign ant neoplasm of colon [facility] End: 11-29-2023 Glucose [Mass/volume] in Serum or Plasma Glucose Lab Routine Once (Lab) for 1 Occurrences starting 11/29/2023 until 11/29/2023 [facility] Work Phone: Comment on above: Once (Lab) for 1 Occ urrences starting 11/29/2023 until 11/29/2023 End: 11-29-2023 Moderate Sedation Moderate Sedation Procedures Routine Once for 1 Occurrences starting 11/29/2023 until 11/29/2023 [facility] Service Area Work Phone: Comment on above: Once for 1 Occurrenc es starting 11/29/2023 until 11/29/2023 End: 11-29-2023 Pulse oximetry, continuous Pulse oximetry, continuous Respiratory Care Routine Continuous until discontinued starting 11/29/2023 [facility] Work Phone: Comment on above: Continuous until dis continued starting 11/29/2023 US Abdominal Aorta f or screening Vascular US abdominal aorta anuerysm AAA screening Vascular Ultrasound Routine Screening for AAA (abdominal aortic aneurysm) 10/31/2023 9:57 AM EDT [facility] Service Area Work Phone: Immunizations Immunization Date Immunization Notes Care Provider Erik johnston 03-23-2023 influenza virus vaccine, unspecified formulation Sirisha Vincent [employer] APPLICATION DEVELOPER-ENTRY ANALYST Work Phone: [facility] Work Phone: Payers Date Payer Category Payer Unknown [id number] 2022 [employer] others[employer] [id number] 2022-Present [address] [place] [address] [id number] 2022 [employer] others) [id number] 2017 Unknown 2015 Medicare MEDICARE MEDICAR E PART A AND B [id number] 2015-Present [address] [place] [address] [id number] 1959 [employer] ( and others) [id number] 1959 Medicare [id number] 1950 Unknown [id number]. 1069 1950 Unknown [id number] [id number]. 419 1950 Unknown [id number] [id number]. 1244 1950 Unknown [id number] [id number]. 1244 1950 Unknown [id number] 2.16.840.1.073829.3.579.2. 1244 1950 Unknown [id number] [id number]. 1244 1950 Unknown [id number] [id number]. 1243 1950 Unknown [id number] 2.16.840.1.546199.3.579.2. 1243 1950 Unknown [id number] [id number]. 124 1950 Unknown [id number] [id number]. 903 1950 Unknown [id number] [id number]. 124 1950 Unknown [id number] [id number]. 1245 1950 Unknown [id number]. 1245 Social History Date Type Detail Facility Start: 05-24-2023 End: 11-24-2023 Tobacco smoking status NHIS Ex-smoker [facility] Work Phone: Start: 06-20-1972 End: 06-20-1979 History of tobacco use Current smoker [facility] Work Phone: Start: 06-20-1972 End: 06-20-1979 History of tobacco use Cigarette Smoker [facility] Work Phone: Start: 05-24-2023 Tobacco use and exposure Smokeless tobacco non-user [facility] Work Phone: Start: 05-24-2023 End: 03-28-2024 Alcohol intake Ex-drinker (finding) [facility] Work Phone: Start: 05-24-2023 End: 11-29-2023 History of Social function [facility] Work Phone: Start: 05-24-2023 End: 11-29-2023 Tobacco use panel [facility] Work Phone: Start: 05-24-2023 Alcohol Comment former drinker [facility] Work Phone: Start: 1950 Sex Assigned At Not on file [facility] Work Phone: Start: 05-14-2023 End: 03-28-2024 Exposure to SARS-CoV-2 (event) Not sure [facility] Start: 10-26-2023 End: 11-24-2023 Tobacco use and exposure Former smokeless tobacco user [facility] Work Phone: End: 06-20-1979 History of tobacco use Chews Tobacco [facility] Work Phone: Start: 1950 Sex assigned at Male [facility] Tobacco smoking status NHIS Tobacco smoking consumption unknown [facility] Clinical Notes 05-24-2023 to 04-02-2024 Sirisha Kaur APRN-ENTRY ANALYST - 03/28/2024 11:10 AM EDTDischarge InstructionsTim Hernandez, DO - 11/29/2023 12:40 PM EDTTim Hernandez, DO - 11/29/2023 12:40 PM EDT Note Date & Type Note Facility 04-02-2024 Note NEW Patient Visit Vickey Gutierrez DPM Patient Name: Sukhdev Alexandre. . Date of : 1950, 73 y.o.. Gender: male. Subjective: Patient is a pleasant 73-year-old male who presents to clinic complaining of a painful callus/corn to the plantar aspect of his right foot. Patient states that this has been present for several months (since October 2023) and worsening. Patient reports sharp pain as if he is walking on a pebble or stone with ambulation. Denies any trauma or injury. Denies fevers, chills, nausea, vomiting, chest pain, shortness of breath, or any other constitutional symptoms. Past Medical History: Diagnosis Date Tremor of left hand Weight loss Past Surgical History: Procedure Laterality Date CT COLONOSCOPY 11/29/2023 CT COLONOSCOPY TOTAL HIP ARTHROPLASTY Right 06/2023 TOTAL HIP ARTHROPLASTY Left 08/2023 Social History Socioeconomic History Marital status: Tobacco Use Smoking status: Former Types: Cigarettes Smokeless tobacco: Former Substance and Sexual Activity Alcohol use: Not Currently Drug use: Never Physical Examination: BP 129/63 (BP Location: Right arm, Patient Position: Sitting, BP Cuff Size: Adult) Pulse (!) 56 Temp 98.2 degrees F (36.8 degrees C) (Infrared) General Appearance: Alert, cooperative, no distress, appears stated age. Podiatric Exam Vascular: DP and PT pulses are palpable 2/4. Capillary refill time is less than 3 secs to distal digits. Skin temperature is warm to warm from proximal tibial tuberosity to distal digit. No appreciable edema to bilateral foot or ankle Neurological: Gross sensation is intact. Protective sensation is intact. Dermatologic: Small porokeratotic lesion is noted to the plantar aspect of the right foot. Upon debridement of lesion, no underlying ulceration. Small nucleated core was noted and removed. No surrounding erythema, edema or any acute signs infection. Interdigital spaces are clean dry and intact. Musculoskeletal: Pain on palpation to the small nucleated core lesion, plantar right foot. Patient is able to wiggle digits. Ankle joint range of motion is intact. Muscle strength is 5/5 to dorsiflexors, plantar flexors, inverters and everters. Compartments soft and compressible. No calf pain Diagnoses: 1. Acquired plantar porokeratosis 2. [place] of foot Ambulatory referral to Podiatry 3. Right foot pain Imaging: Not required for this visit Assessment/Plan: Patient was seen and evaluated. Discussed all clinical findings. Patient has a painful acquired porokeratotic lesion noted to the plantar aspect of the right foot. Using a small 4 mm ring curette, the small nucleated core was removed. Patient expressed pain relief following removal of the nucleated core. Discussed using cantharidin in the future if patient continues to have pain and discomfort with ambulation. All questions were answered to patient satisfaction. Patient understands to call with any questions or concerns. Follow-up as needed. This note was partially created using voice recognition software and is inherently subject to errors including those of syntax and sound-alike substitutions which may escape proofreading. In such instances, original meaning may be extrapolated by contextual derivation. Vickey Gutierrez DPM, MS Podiatric Physician & Surgeon AUTHENTICATED BY VICKEY GUTIERREZ, ON 04/02/2024 14:48:20 [facility] 03-28-2024 History of Present illness Narrative Subjective Patient ID: Sukhdev Alexandre is a 73 y.o. male who presents for Shaking and Drooling. HPI Here today for acute concerns starting in January. He was having trouble walking, went to ortho as he was post-op from hip replacement. Ortho says he is saying he may need left hip revision, he is in PT currently. He has also completed a short medrol dose pack. reports left hand tremors for about 9 + months, it is a shake not pill rolling Also reports about 1 month of drooling reports weight loss of 20 pounds since January Review of Systems Constitutional: Positive for unexpected weight change. Negative for chills, fatigue and fever. HENT: Positive for drooling. Respiratory: Negative for cough and shortness of breath. Cardiovascular: Negative for chest pain, palpitations and leg swelling. Gastrointestinal: Negative for abdominal pain, blood in stool, constipation, diarrhea and vomiting. Genitourinary: Negative for dysuria and hematuria. Neurological: Positive for tremors. Negative for dizziness, weakness, light-headedness and headaches. Psychiatric/Behavioral: Positive for sleep disturbance. Objective BP 125/63 (Patient Position: Sitting) Pulse 51 Ht 1.753 m (5' 9 ) Wt 83.2 kg (183 lb 6.4 oz) BMI 27.08 kg/m Physical Exam Cardiovascular: Rate and Rhythm: Regular rhythm. Heart sounds: Normal heart sounds. Pulmonary: Breath sounds: Normal breath sounds. Skin: Capillary Refill: Capillary refill takes less than 2 seconds. Neurological: Mental Status: He is alert. Cranial Nerves: Cranial nerves 2-12 are intact. Assessment/Plan Problem List Items Addressed This Visit None Visit Diagnoses Codes [place] of foot - Primary L84 Relevant Orders Referral to Podiatry Weight loss R63.[address] head w and wo IV contrast XR chest 2 views Prostate Spec.Ag,Screen Abnormal kidney function N28.9 Relevant Orders Creatinine, Serum Drooling K11.[address] head w and wo IV contrast Referral to Neurology Tremor of left hand R25.[address] head w and wo IV contrast Referral to Neurology Screening for prostate cancer Z12.5 Relevant Orders Prostate Spec.Ag,Screen Weight loss -Rule out malignancy -Chest xray -CBC Drooling/Left hand tremor -Consider brain mass vs parkinson's -CT head ordered -Neurology referral -Will follow results -Cannot determine gait due to hip pain and recent surgery Hip pain -in PT -Possible hip revision documented in this encounter [facility] Work Phone: 11-29-2023 Hospital Discharge instructions Mariam Colvin RN - 11/29/2023 12:44 PM EDT Patient Instructions after a Colonoscopy The anesthetics, sedatives or narcotics which were given to you today will be acting in your body for the next 24 hours, so you might feel a little sleepy or groggy. This feeling should slowly wear off. Carefully read and follow the instructions. You received sedation today: - Do not drive or operate any machinery or power tools of any kind. - No alcoholic beverages today, not even beer or wine. - Do not make any important decisions or sign any legal documents. - No over the counter medications that contain alcohol or that may cause drowsiness. - Do not make any important decisions or sign any legal documents. - Make sure you have someone with you for first 24 hours. While it is common to experience mild to moderate abdominal distention, gas, or belching after your procedure, if any of these symptoms occur following discharge from the GI Lab or within one week of having your procedure, call the [facility] to be advised whether a visit to your nearest Urgent Care or Emergency Department is indicated. Take this paper with you if you go. - If you develop an allergic reaction to the medications that were given during your procedure such as difficulty breathing, rash, hives, severe nausea, vomiting or lightheadedness. - If you experience chest pain, shortness of breath, severe abdominal pain, fevers and chills. -If you develop signs and symptoms of bleeding such as blood in your spit, if your stools turn black, tarry, or bloody - If you have not urinated within 8 hours following your procedure. - If your IV site becomes painful, red, inflamed, or looks infected. our physician recommends the additional following instructions: -You have a contact number available for emergencies. The signs and symptoms of potential delayed complications were discussed with you. You may return to normal activities tomorrow. -Resume your previous diet. -Continue your present medications. -We are waiting for your pathology results. -Your physician has recommended a repeat colonoscopy (date to be determined after pending pathology results are reviewed) for surveillance based on pathology results. -The findings and recommendations have been discussed with you. -The findings and recommendations were discussed with your family. - Please see Medication Reconciliation Form for new medication/medications prescribed. If you experience any problems or have any questions following discharge from the GI Lab, please call: Nurse Signature Date Patient/Responsible Republican Signature Date documented in this encounter [facility] Work Phone: 11-29-2023 History and physical note History Of Present Illness Sukhdev Alexandre is a 73 y.o. male presenting with screening. Past Medical History Past Medical History: Diagnosis Date Sleep apnea Surgical History Past Surgical History: Procedure Laterality Date JOINT REPLACEMENT 07-01-24 09-09-23 MANDIBLE SURGERY TONSILLECTOMY Social History He reports that he quit smoking about 44 years ago. His smoking use included cigarettes. He started smoking about 51 years ago. He has a 4.3 pack-year smoking history. He quit smokeless tobacco use about 44 years ago. His smokeless tobacco use included chew. He reports that he does not currently use alcohol after a past usage of about 6.0 standard drinks of alcohol per week. He reports that he does not use drugs. Family History Family History Problem Relation Name Age of Onset Alzheimer's disease Mother Prostate cancer Father Alzheimer's disease Brother Allergies Allergies Allergen Reactions Penicillins Unknown and Hives Celecoxib Itching and Rash Review of Systems Pre-sedation Evaluation: ASA Classification - ASA 2 - Patient with mild systemic disease with no functional limitations Mallampati Score - II (hard and soft palate, upper portion of tonsils and uvula visible) Physical Exam Vitals and nursing note reviewed. Constitutional: Appearance: Normal appearance. HENT: Head: Normocephalic. Mouth/Throat: Mouth: Mucous membranes are moist. Pharynx: Oropharynx is clear. Eyes: Pupils: Pupils are equal, round, and reactive to light. Cardiovascular: Rate and Rhythm: Normal rate and regular rhythm. Heart sounds: Normal heart sounds. Pulmonary: Effort: Pulmonary effort is normal. Breath sounds: Normal breath sounds. Abdominal: General: Abdomen is flat. Bowel sounds are normal. Palpations: Abdomen is soft. Musculoskeletal: General: Normal range of motion. Cervical back: Normal range of motion and neck supple. Skin: General: Skin is warm and dry. Neurological: General: No focal deficit present. Mental Status: He is alert and oriented to person, place, and time. Psychiatric: Mood and Affect: Mood normal. Behavior: Behavior normal. Last Recorded Vitals There were no vitals taken for this visit. Assessment/Plan Problem List Items Addressed This Visit None Visit Diagnoses Colon cancer screening Relevant Orders Colonoscopy Screening; Average Risk Patient SURGERY CONSULTANT/Current Medications: (Not in a hospital admission) Current Outpatient Medications Medication Sig Dispense Refill atorvastatin (Lipitor) 10 mg tablet Take 1 tablet (10 mg) by mouth once daily. 90 tablet 3 multivitamin tablet Take 1 tablet by mouth once daily. Current Facility-Administered Medications Medication Dose Route Frequency Provider Last Rate Last Admin lactated Ringer's infusion 20 mL/hr intravenous Continuous DO Tim Iraheta DO [facility] Work Phone: 11-29-2023 History and physical note History Of Present Illness Sukhdev Alexandre is a 73 y.o. male presenting with screening. Past Medical History Past Medical History: Diagnosis Date Sleep apnea Surgical History Past Surgical History: Procedure Laterality Date JOINT REPLACEMENT 07-01-24 09-09-23 MANDIBLE SURGERY TONSILLECTOMY Social History He reports that he quit smoking about 44 years ago. His smoking use included cigarettes. He started smoking about 51 years ago. He has a 4.3 pack-year smoking history. He quit smokeless tobacco use about 44 years ago. His smokeless tobacco use included chew. He reports that he does not currently use alcohol after a past usage of about 6.0 standard drinks of alcohol per week. He reports that he does not use drugs. Family History Family History Problem Relation Name Age of Onset Alzheimer's disease Mother Prostate cancer Father Alzheimer's disease Brother Allergies Allergies Allergen Reactions Penicillins Unknown and Hives Celecoxib Itching and Rash Review of Systems Pre-sedation Evaluation: ASA Classification - ASA 2 - Patient with mild systemic disease with no functional limitations Mallampati Score - II (hard and soft palate, upper portion of tonsils and uvula visible) Physical Exam Vitals and nursing note reviewed. Constitutional: Appearance: Normal appearance. HENT: Head: Normocephalic. Mouth/Throat: Mouth: Mucous membranes are moist. Pharynx: Oropharynx is clear. Eyes: Pupils: Pupils are equal, round, and reactive to light. Cardiovascular: Rate and Rhythm: Normal rate and regular rhythm. Heart sounds: Normal heart sounds. Pulmonary: Effort: Pulmonary effort is normal. Breath sounds: Normal breath sounds. Abdominal: General: Abdomen is flat. Bowel sounds are normal. Palpations: Abdomen is soft. Musculoskeletal: General: Normal range of motion. Cervical back: Normal range of motion and neck supple. Skin: General: Skin is warm and dry. Neurological: General: No focal deficit present. Mental Status: He is alert and oriented to person, place, and time. Psychiatric: Mood and Affect: Mood normal. Behavior: Behavior normal. Last Recorded Vitals There were no vitals taken for this visit. Assessment/Plan Problem List Items Addressed This Visit None Visit Diagnoses Colon cancer screening Relevant Orders Colonoscopy Screening; Average Risk Patient SURGERY CONSULTANT/Current Medications: (Not in a hospital admission) Current Outpatient Medications Medication Sig Dispense Refill atorvastatin (Lipitor) 10 mg tablet Take 1 tablet (10 mg) by mouth once daily. 90 tablet 3 multivitamin tablet Take 1 tablet by mouth once daily. Current Facility-Administered Medications Medication Dose Route Frequency Provider Last Rate Last Admin lactated Ringer's infusion 20 mL/hr intravenous Continuous DO Tim Iraheta DO documented in this encounter [facility] Work Phone: 07-18-2023 History of Present illness Narrative Subjective [...] Patient's surgeon is requesting referral to an food service team member to confirm Celebrex allergy. Patient is tentatively [...] Appropriate mood & affect. Assessment/Plan Drug reaction: Warehouse Examiner referral at surgeon's request. Dyslipidemia: Lipitor refilled Follow-up as scheduled or as needed. Problem List Items Addressed This Visit None Visit Diagnoses Dyslipidemia - Primary Relevant Medications atorvastatin (Lipitor) 10 mg tablet Adverse effect of drug, initial encounter Relevant Orders Referral to ENT Final diagnoses: [E78.5] Dyslipidemia [T50.905A] Adverse effect of drug, initial encounter documented in this encounter [facility] Work Phone: 05-24-2023 History of Present illness Narrative Subjective Patient ID: [id number] Alexandre is a 72 y.o. male who presents for [facility] Care (Patient transferring from Dr. Parker and offers no complaints. Mentions is scheduled for right hip replacement on 07-05-2023 in [place]./Colonoscopy done [address] Oilva, prostate and PSY done 05/2022.). HPI Patient presents to [facility]. Patient has medical history of dyslipidemia and takes atorvastatin for this. Patient also has a history of chronic hip pain and arthritis and is scheduled to have right total hip in early June. Patient has already been cleared for surgery. Shortly thereafter, the patient will have the left done as well. Patient is having this done at [facility]. Patient has no acute complaints Review [...] neoplasm of prostate documented in this encounter [facility] Work Phone: Evaluation note Diagnosis Dyslipidemia- Primary Other and unspecified hyperlipidemia Chronic pain of both hips Encounter for screening for malignant neoplasm of prostate documented in this encounter [facility] Work Phone: Evaluation note* Diagnosis Dyslipidemia- Primary Other and unspecified hyperlipidemia Adverse effect of drug, initial encounter documented in this encounter [facility] Work Phone: Evaluation note* Diagnosis Screening for AAA (abdominal aortic aneurysm) Screening for other and unspecified cardiovascular conditions documented in this encounter [facility] Work Phone: Evaluation note* Diagnosis Colon cancer screening Special screening for malignant neoplasms, colon documented in this encounter [facility] Work Phone: Evaluation note* Diagnosis [place] of foot- Primary Weight loss Loss of weight Abnormal kidney function Nonspecific abnormal results of kidney function study Drooling Other facial nerve disorders Tremor of left hand Screening for prostate cancer Special screening for malignant neoplasm of prostate documented in this encounter [facility] Work Phone: Evaluation note* Diagnosis [place] [facility] [place]- [facility] Weight loss Loss of weight documented in this encounter [facility] Work Phone: reason for referral (narrative)* Consultation (Routine) - Authorized Specialty Diagnoses / Procedures Referred By Contac t Referred To Contact Primary Care Procedures Follow Up In Primary Care - Established Mary Ramos PA-C [address] [facility] [place] [address] Referral ID Status Reason Start Date Expiration Date V isits Requested Visits Authorized [id number] Authorized 05/24/2023 05/23/2024 1 1 [facility] Work Phone: reason for referral (narrative)* Consultation (Routine) - Authorized Specialty Diagnoses / Procedures Referred By Contac t Referred To Contact Otolaryngology Diagnoses Adverse effect of drug, initial encounter Mary Ramos PA-C [address] [place] [address], [address] [address] Referral ID Status Reason Start Date Expiration Date Visits Requested Visits Authorized [id number] Authorized Specialty Services Required 07/18/2023 07/17/2024 1 1 [facility] Work Phone: reason for referral (narrative)* Consultation (Routine) - Authorized Specialty Diagnoses / Procedures Referred By Contac t Referred To Contact Primary Care Procedures Follow Up In Primary Care - Established Sirisha Kaur APRN-CNP [address] [facility] [place] [address] Referral ID Status Reason Start Date Expiration Date V isits Requested Visits Authorized [id number] Authorized 03/28/2024 03/28/2025 1 1 * Consultation (Routine) - Authorized Specialty Diagnoses / Procedures Referred By Contac t Referred To Contact Neurology Diagnoses Drooling Tremor of left hand Sirisha Kaur APRN-SYBIL [address] [facility] [place] [address] Referral ID Status Reason Start Date Expiration Date Visits Requested Visits Authorized [id number] Authorized Specialty Services Required 03/28/2024 03/28/2025 1 1 * Imaging (Routine) - Authorized Specialty Diagnoses / Procedures Referred By Contac t Referred To Contact Radiology Diagnoses Weight loss Procedures XR chest 2 views Sirisha Kaur APRN-SYBIL [address] [facility] [place] [address] Referral ID Status Reason Start Date Expiration Date Visits Requested Visits Authorized [id number] Authorized Perform Procedure 03/28/2024 03/28/2025 1 1 * Imaging (Routine) - Authorized Specialty Diagnoses / Procedures Referred By Contac t Referred To Contact Radiology Diagnoses Weight loss Drooling Tremor of left hand Procedures CT head w and wo IV contrast Sirisha Kaur APRN-SYBIL [address] [facility] [place] [address] Referral ID Status Reason Start Date Expiration Date Visits Requested Visits Authorized [id number] Authorized Perform Procedure 03/28/2024 03/28/2025 1 1 * Consultation (Routine) - Authorized Specialty Diagnoses / Procedures Referred By Contac t Referred To Contact Podiatry Diagnoses [place] of [place] Sirisha Kaur APRN-SYBIL [address] [facility] [place] [address] Referral ID Status Reason Start Date Expiration Date Visits Requested Visits Authorized [id number] Authorized Specialty Services Required 03/28/2024 03/28/2025 1 1 [facility] Work Phone: Summary Purpose Family History No [...] Directives Records FoundNo Advanced Directives Records Found Reason for Referral Specialty Diagnoses / Procedures Referred By Trinidadac t Referred To Contact Cardiology Diagnoses Screening for AAA (abdominal aortic aneurysm) Procedures Vascular US abdominal aorta anuerysm AAA screening Sirisha Kaur, GRAILS WEB APPLICATION DEVELOPER-ENTRY ANALYST [address] [facility] [place] [address] Referral ID Status Reason Start Date Expiration Date Visits Requested Visits Authorized [id number] Authorized Perform Procedure 10/26/2023 10/25/2024 1 1 Specialty Diagnoses / Procedures Referred By Leelee t Referred To Contact Gastroenterology Diagnoses Colon cancer screening Procedures Colonoscopy Screening; Average Risk Patient IN COLONOSCOPY FLX DX W/COLLJ SPEC WHEN PFRMD IN COLON CA SCRN NOT HI RSK IND IN COLORECTAL SCRN; HI RISK IND IN COLONOSCOPY W/BIOPSY SINGLE/MULTIPLE IN COLSC FLX W/RMVL OF TUMOR POLYP LESION SNARE TQ IN COLSC FLX W/REMOVAL LESION BY HOT BX FORCEPS Tim Hernandez, DO [address] [facility] [address] [place] [address] Referral ID Status Reason Start Date Expiration Date V isits Requested Visits Authorized [id number] Authorized 10/28/2023 10/27/2024 1 1 Specialty Diagnoses / Procedures Referred By Leelee t Referred To Contact Podiatry Diagnoses [place] of [place] Sirisha Kaur, ENTRY ANALYST [address] [place] [address] Vickey Gutierrez, EARNEST [address] [place] [address] Referral ID Status Reason Start Date Expiration Date V isits Requested Visits Authorized [id number] Pending Review 03/28/2024 03/28/2025 1 1 Specialty Diagnoses / Procedures Referred By Leelee lugo Referred To Contact Radiology Diagnoses Weight loss Procedures XR chest 2 views Sirisha Kaur, GRAILS WEB APPLICATION DEVELOPER-ENTRY ANALYST [address] [facility] [place] [address] Referral ID Status Reason Start Date Expiration Date Visits Requested Visits Authorized [id number] Authorized Perform Procedure 03/28/2024 03/28/2025 1 1 Additional Source Comments (unrecognized sect ion and content) No Status Records FoundNo Status Records FoundNo Status Records FoundNo Status Records FoundNo Status Records FoundNo Status Records FoundNo Status Records Found INFORMATION SOURCE (unrecogn ized section and content) DATE CREATED AUTHOR 12/09/2017 [facility] DATE CREATED AUTHOR AUTHOR'S ORGANIZ ATION 07/20/2022 [facility] DATE CREATED AUTHOR AUTHOR'S ORGANIZ ATION 09/03/2023 [facility] DATE CREATED AUTHOR AUTHOR'S ORGANIZ ATION 03/30/2024 [facility] DATE CREATED AUTHOR AUTHOR'S ORGANIZ ATION 04/02/2024 [facility] DATE CREATED AUTHOR AUTHOR'S ORGANIZ ATION 04/04/2024 [facility] DATE CREATED AUTHOR AUTHOR'S ORGANIZ ATION 04/08/2024 [facility] Reason for Visit (unrecogniz ed section and content) Reason Comments Establish Care Patient transferring from Dr. Parker and offers no complaints. Mentions is scheduled for right hip replacement on 07-05-2023 in [place].Colonoscopy done [address] Oliva, prostate and PSY done 05/2022. Reason Comments Medication Reaction Patient states had h hermila all over body x last week and cleared up 2 days ago.Patient feels he had a reaction to the Celebrex, and discontinued med 3 days ago.Patient had right hip replacement on 07-01-23 and due for left hip replacement. Specialty Diagnoses / Procedures Referred By Leelee lugo Referred To Contact Cardiology Diagnoses Screening for AAA (abdominal aortic aneurysm) Procedures Vascular US abdominal aorta anuerysm AAA screening Sirisha aKur, GRAILS WEB APPLICATION DEVELOPER-ENTRY ANALYST [address] [facility] [place] [address] Referral ID Status Reason Start Date Expiration Date Visits Requested Visits Authorized [id number] Authorized Perform Procedure 10/26/2023 10/25/2024 1 1 Specialty Diagnoses / Procedures Referred By Contac t Referred To Contact Diagnoses Encounter for screening for malignant neoplasm of colon Procedures IN COLONOSCOPY FLX DX W/COLLJ SPEC WHEN PFRMD IN COLONOSCOPY W/BIOPSY SINGLE/MULTIPLE IN COLSC FLX W/REMOVAL LESION BY HOT BX FORCEPS IN COLSC FLX W/RMVL OF TUMOR POLYP LESION SNARE TQ [id number] [address] [place] [address] [phone] Referral ID Status Reason Start Date Expiration Date Visits Re quested Visits Authorized [id number] 1 1 Reason Comments Shaking Drooling Specialty Diagnoses / Procedures Referred By Contteagan t Referred To Contact Radiology Diagnoses Weight loss Procedures XR chest 2 views Sirisha Kaur, GRAILS WEB APPLICATION DEVELOPER-ENTRY ANALYST [address] [facility] [place] [address] Referral ID Status Reason Start Date Expiration Date Visits Requested Visits Authorized [id number] Authorized Perform Procedure 03/28/2024 03/28/2025 1 1 Care Teams (unrecognized sec tion and content) Exhaust Equipment Operator Relationship Specialty Start Date End Date Sukhdev Parker MD [address] [place] [phone] PCP - General 07/14/22 Exhaust Equipment Operator Relationship Specialty Start Date End Date Mary Ramos PA-C [address] [facility] [place] [address] PCP - General Internal Medicine 07/15/23 Exhaust Equipment Operator Relationship Specialty Start Date End Date Sirisha Kaur, GRAILS WEB APPLICATION DEVELOPER-ENTRY ANALYST [address] [facility] [place] [address] PCP - General Family Medicine 10/26/23 Exhaust Equipment Operator Relationship Specialty Start Date End Date Sirisha Kaur GRAILS WEB APPLICATION DEVELOPER-ENTRY ANALYST [address] [facility] [place] [address] PCP - General Family Medicine 10/26/23 Exhaust Equipment Operator Relationship Specialty Start Date End Date Sirisha Kaur, GRAILS WEB APPLICATION DEVELOPER-ENTRY ANALYST [address] [facility] [place] [address] PCP - General Family Medicine 10/26/23 Exhaust Equipment Operator Relationship Specialty Start Date End Date Sirisha Kaur, ENTRY ANALYST [address] [place] [address] PCP - General 03/28/24 Exhaust Equipment Operator Relationship Specialty Start Date End Date Sirisha Kaur, GRAILS WEB APPLICATION DEVELOPER-ENTRY ANALYST [address] [facility] [place] [address] PCP - General Family Medicine 10/26/23 FOR RECORDS PERTAINING TO PATIENTS WHO ARE [...] BE BASED ON THE PRIMARY CLINICAL RECORDS. [facility] [facility]. provides no warranty or guarantee of the accuracy or completeness of information in this document.
== END | disposition home or self-care (01) ==
LOC: CT 14:49
PROVIDERS: PCP Internal Medicine
DX: R63.4 Abnormal weight loss (principal); K11.7 Disturbances of salivary secretion; R25.1 Tremor, unspecified
CPT/HCPCS: 70470; Q9967